=== PATIENT | male | born 1980 | race Caucasian/White ===

== ENCOUNTER 2017-02-21 09:31 | Emergency (ER) | payer OTHER ==
[2017-02-21] MEDS ORDERED: DEXAMETHASONE SOD PHOS INJ 10 MG/1 ML VIAL IM ONE (10:39)
[2017-02-21] MEDS ORDERED: KETOROLAC TROMETHAMINE 60 MG/2 ML SDV IM ONE (10:39)
--- NOTE | 2017-02-21 10:45 | ER Document Report ---
ED Neck/Back Problem - General Chief Complaint: Low Back Pain Stated Complaint: BACK PAIN Time Seen by Provider: 02/21/17 10:04 Notes: 36 yo male presents to ED c/o mid to low back pain x 1 week. pt reports having back pain for years, but this week the pain is worse. pt denies radiculopathy, paresthesias, bowel/bladder dysfunction. No fever, no hx/o cancer, no recent tattoos or injections. Denies IV drug use. pain is aggrevated with prolonged standing and bending. 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 pt reports he dropped his soda bottle this morning and felt sharp pain when he bent over. TRAVEL OUTSIDE OF THE [place] IN LAST 30 DAYS: No - HPI Patient complains to provider of: Pain Where: Work Onset: Chronic - with exacerbations Quality of pain: Sharp, Stabbing Pain Level: 5 Context: Bending Associated symptoms: None, Like prior neck/back pain, Lower back pain. denies: Fever, Incontinence, Motor loss, Numbness/tingling, Radiation to leg, Unable to urinate Exacerbated by: Other - prolonged standing and bending Relieved by: Supine Similar symptoms previously: Yes Recently seen / treated by doctor: No - Related Data Allergies/Adverse Reactions: acetaminophen [From Tylenol] Allergy (Intermediate, Verified 02/21/17 09:40) VOMITING Past Medical History - General Information source: Patient - Social History Smoking Status: Current Every Day Smoker Chew tobacco use (# tins/day): No Frequency of alcohol use: Rare Drug Abuse: None Lives with: Family Family History: Reviewed & Not Pertinent Patient has suicidal ideation: No Patient has homicidal ideation: No - Past Medical History Cardiac Medical History: Reports: Hx Hypertension Pulmonary Medical History: Reports: Hx Sleep Apnea Denies: Hx Asthma Renal/ Medical History: Denies: Hx Peritoneal Dialysis Past Surgical History: Denies: Hx Pacemaker - Immunizations Hx Diphtheria, Pertussis, Tetanus Vaccination: Yes Review of Systems - Review of Systems Constitutional: No symptoms reported EENT: No symptoms reported Cardiovascular: No symptoms reported Respiratory: No symptoms reported Gastrointestinal: No symptoms reported Genitourinary: No symptoms reported Male Genitourinary: No symptoms reported Musculoskeletal: See HPI, Back pain Skin: No symptoms reported Hematologic/Lymphatic: No symptoms reported Neurological/Psychological: No symptoms reported Physical Exam - Vital signs Vitals: Temp Pulse Resp BP Pulse Ox 98.7 F 104 H 18 159/124 H 95 02/21/17 09:40 02/21/17 09:40 02/21/17 09:40 02/21/17 09:40 02/21/17 09:40 Interpretation: Normal - General General appearance: Appears well, Alert - HEENT Head: Normocephalic, Atraumatic Eyes: Normal Pupils: PERRL - Respiratory Respiratory status: No respiratory distress Chest status: Nontender Breath sounds: Normal Chest palpation: Normal - Cardiovascular Rhythm: Regular Heart sounds: Normal auscultation Murmur: No - Abdominal Inspection: Normal Distension: No distension Bowel sounds: Normal Tenderness: Nontender Organomegaly: No organomegaly - Back Back: Tender - mid thoracic to lower lumbar spinal and paraspinal tenderness. neg SLT, neg heel/toe. pt able to walk without difficulty - Extremities General upper extremity: Normal inspection, Nontender, Normal color, Normal ROM , Normal temperature General lower extremity: Normal inspection, Nontender, Normal color, Normal ROM , Normal temperature, Normal weight bearing. No: Michael's sign - Neurological Neuro grossly intact: Yes Cognition: Normal Orientation: AAOx4 Perkins Coma Scale Eye Opening: Spontaneous Mundo Coma Scale Verbal: Oriented Perkins Coma Scale Motor: Obeys Commands Mundo Coma Scale Total: 15 Speech: Normal Motor strength normal: LUE, RUE, LLE, RLE Sensory: Normal - Psychological Associated symptoms: Normal affect, Normal mood - Skin Skin Temperature: Warm Skin Moisture: Dry Skin Color: Normal Course - Re-evaluation Re-evalutation: 02/21/17 11:22 pt presents with chronic low back pain with s/s of an acute exacerbation. pt has no s/s spinal cord compression, cauda equina, infection, aneurysm or other serious etiology. pt is neurologically intact, independently and steadily ambulating without paresthesia or neurologic deficits. Given the extremely low risk of these diagnoses, further diagnostic testing is not indicated in the ED. It was explained to the patient that he should establish with primary care to further evaluate this pain. Home care, follow up with PCM and ED return precautions discussed with pt. pt verbalizes understanding and agrees with plan. short course of pain med and muscle relaxant provided. pt is stable for discharge. 02/21/17 11:26 pt has hx/o HTN but is not on medication at this time. Elevated BP brought to pt's attention. Pt reports he's "always that high". Denies any headache, chest pain, shortness of breath or any other s/s hypertensive crisis. pt encouraged to f/u PCM for further evaluation of elevated blood pressure - Vital Signs Vital signs: Temp Pulse Resp BP Pulse Ox 98.3 F 89 16 168/97 H 93 02/21/17 10:52 02/21/17 10:52 02/21/17 10:52 02/21/17 10:52 02/21/17 10:52 Discharge - Discharge Clinical Impression: Back pain Qualifiers: Back pain location: low back pain Chronicity: acute Back pain laterality: midline Sciatica presence: without sciatica Qualified Code(s): M54.5 - Low back pain Condition: Stable Disposition: HOME, SELF-CARE Instructions: Ice Packs ([facility]), Low Back Pain ([facility]), Muscle Relaxers ([facility]), Oral Narcotic Medication ([facility]), Warm Packs ([facility]) Additional Instructions: please take medications as prescribed for comfort please establish with primary care for further evaluation and treatment of your back pain Prescriptions: Cyclobenzaprine HCl [Flexeril 10 Mg Tablet] 10 mg PO Q6H PRN #20 tablet PRN Reason: Oxycodone HCl [Oxycodone HCl 10 MG Tablet] 10 mg PO Q4H PRN #25 tablet PRN Reason:
[2017-02-21 10:55] VITALS: BP 168/97
== END 2017-02-21 11:00 | disposition home or self-care (01) ==
LOC: ER 09:31
DX: M54.5 Low back pain (principal); F17.200 Nicotine dependence, unspecified, uncomplicated
CPT/HCPCS: 99283; 96372; J1885; J1100

== ENCOUNTER 2017-11-28 14:41 | Emergency (ER) | payer SELFPAY ==
[2017-11-28] MEDS ORDERED: OXYCODONE HCL IR 5 MG TABLET PO ONE (15:14)
--- NOTE | 2017-11-28 15:16 | ER Document Report ---
HPI - HPI Patient complains to provider of: fall Pain Level: 4 Context: pt is a 37 yo male c/o pain to right wrist, right shoulder and mid lower back. pt reports he slipped on wet concrete today and fell. caught himself with outstretched hand, then right arm slipped out from under him and he fell. pt denies radiculopathy,paresthesia, bowel/bladder change. no fever. no previous back injury. 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 Associated Symptoms: None Exacerbated by: Movement Relieved by: Denies - CONSTITUTIONAL Constitutional: DENIES: Fever, Chills - EENT EENT: DENIES: Sore Throat, Ear Pain, Eye problems - NEURO Neurology: DENIES: Headache, Weakness, Vision blurred, Dizzinesss / Vertigo - CARDIOVASCULAR Cardiovascular: DENIES: Chest pain - RESPIRATORY Respiratory: DENIES: Trouble Breathing, Coughing - GASTROINTESTINAL Gastrointestinal: DENIES: Abdominal Pain, Black / Bloody Stools - URINARY Urinary: DENIES: Dysuria, Urgency, Frequency - MUSCULOSKELETAL Musculoskeletal: REPORTS: Extremity pain Past Medical History - General Information source: Patient - Social History Smoking Status: Current Every Day Smoker Chew tobacco use (# tins/day): No Frequency of alcohol use: None Drug Abuse: None Lives with: Family Family History: Reviewed & Not Pertinent Patient has suicidal ideation: No Patient has homicidal ideation: No - Past Medical History Cardiac Medical History: Reports: Hx Hypertension - no meds Pulmonary Medical History: Reports: Hx Sleep Apnea Denies: Hx Asthma Endocrine Medical History: Reports: Hx Diabetes Mellitus Type 2 - no meds Renal/ Medical History: Denies: Hx Peritoneal Dialysis Past Surgical History: Denies: Hx Pacemaker - Immunizations Hx Diphtheria, Pertussis, Tetanus Vaccination: Yes Vertical Provider Document - CONSTITUTIONAL Agree With Documented VS: Yes Exam Limitations: No Limitations General Appearance: Obese - INFECTION CONTROL TRAVEL OUTSIDE OF THE [place] IN LAST 30 DAYS: No - HEENT HEENT: Atraumatic, Normal ENT Exam, PERRLA - NECK Neck: Normal Inspection, Supple - RESPIRATORY Respiratory: Breath Sounds Normal, No Respiratory Distress - CARDIOVASCULAR Cardiovascular: Regular Rate, Regular Rhythm - BACK Back: Abnormal Inspection - Positive lumbar spinal and paraspinal tenderness. Negative straight leg test no foot drop - MUSCULOSKELETAL/EXTREMETIES Musculoskeletal/Extremeties: Tender - Positive tenderness to anterior and posterior right AC. Positive painful arc. Positive tenderness right distal radius and mid wrist. No deformity no ecchymosis . - NEURO Level of Consciousness: Awake, Alert, Appropriate Motor/Sensory: No Motor Deficit - DERM Integumentary: Warm, Dry Course - Re-evaluation Re-evalutation: 11/28/17 15:59 X-rays are negative for acute fracture. Procedures - Immobilization Right wrist Pre-Proc Neuro Vasc Exam: Normal Immobilizer type: Cock-up Performed by: PCT Post-Proc Neuro Vasc Exam: Normal Alignment checked and good: Yes Discharge - Discharge Clinical Impression: Right wrist sprain Qualifiers: Encounter type: initial encounter Qualified Code(s): S63.501A - Unspecified sprain of right wrist, initial encounter Sprain of right shoulder Qualifiers: Encounter type: initial encounter Shoulder sprain type: unspecified sprain Qualified Code(s): S43.401A - Unspecified sprain of right shoulder joint, initial encounter Low back strain Qualifiers: Encounter type: initial encounter Qualified Code(s): S39.012A - Strain of muscle, fascia and tendon of lower back, initial encounter Condition: Stable Instructions: Ice Packs ([facility]), Low Back Pain ([facility]), Muscle Strain ([facility]), Warm Packs ([facility]), Muscle Relaxers ([facility]), Temporary Splint ([facility]), Ice & Elevation ([facility] ) Additional Instructions: Your x-rays are negative for acute fracture Alternate ice and heat to sore areas Wear wrist splint for comfort and protection Anti-inflammatories and muscle relaxants were prescribed Follow-up with your primary care if pain persists more than 10 days Prescriptions: Ibuprofen [Motrin 800 Mg Tablet] 800 mg PO Q6H #20 tablet Methocarbamol [Robaxin 500 Mg Tablet] 1,000 mg PO Q6 #30 tablet Forms: Return to Work
--- NOTE | 2017-11-28 16:19 | RADIOLOGY REPORT (SQ) ---
EXAM DESCRIPTION: WRIST RIGHT 3 VIEWS COMPLETED DATE/TIME: 11/28/2017 4:10 pm REASON FOR STUDY: fell, pain to wrist, sholder and low back COMPARISON: None. NUMBER OF VIEWS: Three views. TECHNIQUE: AP, lateral, and oblique radiographic images acquired of the right wrist. LIMITATIONS: None. FINDINGS: MINERALIZATION: Normal. BONES: No acute fracture or dislocation. No worrisome bone lesions. Normal alignment. SOFT TISSUES: No soft tissue swelling. No foreign body. OTHER: No other significant finding. IMPRESSION: NEGATIVE STUDY OF THE RIGHT WRIST. NO RADIOGRAPHIC EVIDENCE OF ACUTE INJURY. TECHNICAL DOCUMENTATION: JOB ID: [id number] [employer]- All Rights Reserved Reading location - IP/workstation name: [email or web address]
--- NOTE | 2017-11-28 16:19 | RADIOLOGY REPORT (SQ) ---
EXAM DESCRIPTION: SHOULDER RIGHT 2 OR MORE VIEWS COMPLETED DATE/TIME: 11/28/2017 4:10 pm REASON FOR STUDY: fell, pain to wrist, shoulder and low back COMPARISON: None. NUMBER OF VIEWS: Three views. TECHNIQUE: Internal rotation, external rotation, and Y view images acquired of the right shoulder. LIMITATIONS: None. FINDINGS: MINERALIZATION: Normal. BONES: No acute fracture or dislocation. No worrisome bone lesions. JOINTS: No dislocation. VISUALIZED LUNGS AND RIBS: No pneumothorax. No rib fracture. SOFT TISSUES: No radiopaque foreign body. OTHER: No other significant finding. IMPRESSION: NEGATIVE STUDY OF THE RIGHT SHOULDER. NO RADIOGRAPHIC EVIDENCE OF ACUTE INJURY. TECHNICAL DOCUMENTATION: JOB ID: [id number] [employer]- All Rights Reserved Reading location - IP/workstation name: [email or web address]
--- NOTE | 2017-11-28 16:21 | RADIOLOGY REPORT (SQ) ---
EXAM DESCRIPTION: L SPINE WHOLE COMPLETED DATE/TIME: 11/28/2017 4:10 pm REASON FOR STUDY: fell, pain to wrist, sholder and low back COMPARISON: 11/12/2015 NUMBER OF VIEWS: Five views including obliques. TECHNIQUE: AP, lateral, oblique, and sacral radiographic images acquired of the lumbar spine. LIMITATIONS: None. FINDINGS: MINERALIZATION: Normal. SEGMENTATION: Normal. No transitional anatomy. ALIGNMENT: Normal. VERTEBRAE: Maintained height. No fracture or worrisome bone lesion. DISCS: Preserved height. No significant osteophytes or end plate irregularity. POSTERIOR ELEMENTS: Pedicles and facets are intact. No pars defect or posterior arch defects. HARDWARE: None in the spine. PARASPINAL SOFT TISSUES: Normal. PELVIS: Intact as visualized. No fractures or worrisome bone lesions. SI joints intact. OTHER: No other significant finding. IMPRESSION: NORMAL 5 VIEW LUMBAR SPINE. TECHNICAL DOCUMENTATION: JOB ID: [id number] [employer]- All Rights Reserved Reading location - IP/workstation name: [email or web address]
== END 2017-11-28 16:16 | disposition home or self-care (01) ==
LOC: ER 14:41
DX: S63.501A Unspecified sprain of right wrist, initial encounter (principal); S43.401A Unspecified sprain of right shoulder joint, initial encounter; S39.012A Strain of muscle, fascia and tendon of lower back, initial encounter; M25.531 Pain in right wrist; M25.511 Pain in right shoulder; W01.0XXA Fall on same level from slipping, tripping and stumbling without subsequent striking against object, initial encounter; I10 Essential (primary) hypertension; E11.9 Type 2 diabetes mellitus without complications; F17.200 Nicotine dependence, unspecified, uncomplicated
CPT/HCPCS: 99283; 72110; 73030; 73110; L3908

== ENCOUNTER 2017-12-25 10:47 | Emergency (ER) | payer SELFPAY ==
[2017-12-25] MEDS ORDERED: ONDANSETRON 4 MG TAB.RAPDIS PO ONE (11:14)
[2017-12-25] MEDS ORDERED: LIDOCAINE 5% (700 MG) TRANSDERMAL ADH..PATCH TP ONE (11:14)
--- NOTE | 2017-12-25 11:15 | ER Document Report ---
ED Medical Screen (RME) - General Chief Complaint: Abdominal Pain Stated Complaint: ABDOMINAL/BACK PAIN Time Seen by Provider: 12/25/17 11:07 TRAVEL OUTSIDE OF THE [place] IN LAST 30 DAYS: No - HPI Notes: 12/25/17 11:14 Exacerbation of chronic back pain with nausea vomiting diarrhea states blood in stool this morning. - Related Data Allergies/Adverse Reactions: acetaminophen [From Tylenol] Allergy (Intermediate, Verified 11/28/17 14:42) VOMITING Past Medical History - Social History Chew tobacco use (# tins/day): No Frequency of alcohol use: None Drug Abuse: None - Past Medical History Cardiac Medical History: Reports: Hx Hypertension - no meds Pulmonary Medical History: Reports: Hx Sleep Apnea Denies: Hx Asthma Endocrine Medical History: Reports: Hx Diabetes Mellitus Type 2 - no meds Renal/ Medical History: Denies: Hx Peritoneal Dialysis Past Surgical History: Denies: Hx Pacemaker - Immunizations Hx Diphtheria, Pertussis, Tetanus Vaccination: Yes Review of Systems - Review of Systems Gastrointestinal: Abdominal pain, Diarrhea, Nausea, Vomiting Musculoskeletal: Back pain -: Yes All other systems reviewed and negative Physical Exam - Vital signs Vitals: Temp Pulse Resp BP Pulse Ox 98.2 F 92 20 157/93 H 95 12/25/17 10:51 12/25/17 10:51 12/25/17 10:51 12/25/17 10:51 12/25/17 10:51 Course - Vital Signs Vital signs: Temp Pulse Resp BP Pulse Ox 98.2 F 92 20 157/93 H 95 12/25/17 10:51 12/25/17 10:51 12/25/17 10:51 12/25/17 10:51 12/25/17 10:51
[2017-12-25 11:55] LABS: ABSOLUTE BASOPHILS # (AUTO) 0.1 10^3/uL (0.0-0.2); ABSOLUTE EOSINOPHILS # (AUTO) 0.1 10^3/uL (0.0-0.6); ABSOLUTE LYMPHOCYTES (AUTO) 2.3 10^3/uL (0.5-4.7); ABSOLUTE MONOCYTES (AUTO) 0.5 10^3/uL (0.1-1.4); ABSOLUTE NEUT (AUTO) 7.5 10^3/uL (1.7-8.2); HEMOGLOBIN 15.6 g/dL (13.5-17.0); LYMPHOCYTES % (AUTO) 21.7 % (13-45); MEAN CORPUSCULAR HEMOGLOBIN 32.3 pg (27.0-33.4); MEAN CORPUSCULAR HGB CONC 34.8 g/dL (32.0-36.0); MEAN CORPUSCULAR VOLUME 93 fl (80-97); MONOCYTES % (AUTO) 5.1 % (3-13); PLATELET COUNT 208 10^3/uL (150-450); RED BLOOD COUNT 4.84 10^6/uL (4.35-5.55); RED CELL DISTRIBUTION WIDTH 14.2 % (11.5-14.0); SEGMENTED NEUTROPHILS % (AUTO) 71.2 % (42-78); TOTAL CELLS COUNTED % (AUTO) 100 %; WHITE BLOOD COUNT 10.5 10^3/uL (4.0-10.5)
[2017-12-25 11:59] LABS: APPEARANCE,URINE CLEAR; BILIRUBIN,URINE NEGATIVE (NEGATIVE); COLOR,URINE YELLOW; GLUCOSE, URINE >=500 mg/dL (NEGATIVE); KETONES,URINE NEGATIVE (NEGATIVE); LEUKOCYTE ESTERASE,URINE NEGATIVE (NEGATIVE); NITRITE,URINE NEGATIVE (NEGATIVE); PROTEIN,URINE 100 mg/dL (NEGATIVE); URINE SPECIFIC GRAVITY 1.035
[2017-12-25 12:12] LABS: ALANINE AMINOTRANSFERASE 49 U/L (21-72); ALBUMIN 4.4 g/dL (3.5-5.0); ALKALINE PHOSPHATASE 68 U/L (38-126); ANION GAP 14 (5-19); ASPARTATE AMINO TRANSFERASE 29 U/L (17-59); BILIRUBIN,DIRECT 0.3 mg/dL (0.0-0.4); BILIRUBIN,TOTAL 0.9 mg/dL (0.2-1.3); BLOOD UREA NITROGEN 14 mg/dL (7-20); CALCIUM 9.6 mg/dL (8.4-10.2); CARBON DIOXIDE 29 mmol/L (22-30); CHLORIDE 97 mmol/L (98-107); GLUCOSE 299 mg/dL (75-110); LIPASE 112.8 U/L (23-300); POTASSIUM 4.6 mmol/L (3.6-5.0); SODIUM 139.8 mmol/L (137-145); TOTAL PROTEIN 7.9 g/dL (6.3-8.2)
[2017-12-25] MEDS ORDERED: DEXAMETHASONE SOD PHOS INJ 10 MG/1 ML VIAL IM ONE (14:29)
[2017-12-25] MEDS ORDERED: KETOROLAC TROMETHAMINE 60 MG/2 ML SDV IM ONE (14:29)
--- NOTE | 2017-12-25 14:36 | ER Document Report ---
ED GI/ - General Chief Complaint: Abdominal Pain Stated Complaint: ABDOMINAL/BACK PAIN Time Seen by Provider: 12/25/17 11:07 Mode of Arrival: Ambulatory Information source: Patient Notes: ED for complaint of lower back pain and lower abdominal pain since yesterday. He states when he went to the bathroom this morning and wiped he found some blood on the tissues. I saw him in the emergency room he states he is no longer having any pain in his abdomen only pain in his lower back. He states he has a long history of low back pain. He states he does not have a primary doctor and does not go to her primary doctor in years. He states he has been told in the emergency room that he has high blood pressure and diabetes type 2 but is not followed up with either one. Patient is alert and oriented respirations regular and unlabored able to move freely in the bed. TRAVEL OUTSIDE OF THE [place] IN LAST 30 DAYS: No - HPI Patient complains to provider of: Abdominal pain, Other - Low back pain and blood on his toilet paper Onset: Yesterday Timing/Duration: Persistent Quality of pain: Sharp Severity at maximum: Severe Severity in ED: Moderate Pain Level: 2 Location: Other - States he was having lower abdominal pain but he does not have any pain in his lower abdomen now Associated symptoms: Other - Blood when he wipes and back pain Exacerbated by: Movement - For his back pain states he is no longer having abdominal pain Relieved by: Sitting, Standing Similar symptoms previously: Yes Recently seen / treated by doctor: No - Related Data Allergies/Adverse Reactions: acetaminophen [From Tylenol] Allergy (Intermediate, Verified 11/28/17 14:42) VOMITING Past Medical History - General Information source: Patient - Social History Smoking Status: Current Every Day Smoker Cigarette use (# per day): Yes - ppd Chew tobacco use (# tins/day): No Smoking Education Provided: Yes - 4min Frequency of alcohol use: None Drug Abuse: None Lives with: Friend Family History: Reviewed & Not Pertinent Patient has suicidal ideation: No Patient has homicidal ideation: No - Past Medical History Cardiac Medical History: Reports: Hx Hypertension - no meds Pulmonary Medical History: Reports: Hx Sleep Apnea EENT Medical History: Reports: None Neurological Medical History: Reports: None Endocrine Medical History: Reports: Hx Diabetes Mellitus Type 2 - no meds Renal/ Medical History: Reports: None Malignancy Medical History: Reports None GI Medical History: Reports: None Musculoskeletal Medical History: Reports None Skin Medical History: Reports None Psychiatric Medical History: Reports: None Traumatic Medical History: Reports: None Infectious Medical History: Reports: None Surgical Hx: Negative Past Surgical History: Reports: None - Immunizations Hx Diphtheria, Pertussis, Tetanus Vaccination: Yes Review of Systems - Review of Systems Constitutional: No symptoms reported EENT: No symptoms reported Cardiovascular: No symptoms reported Respiratory: No symptoms reported Gastrointestinal: Abdominal pain, Other - blood on paper Genitourinary: No symptoms reported Male Genitourinary: No symptoms reported Musculoskeletal: Back pain Skin: No symptoms reported Hematologic/Lymphatic: No symptoms reported Neurological/Psychological: No symptoms reported -: Yes All other systems reviewed and negative Physical Exam - Vital signs Vitals: Temp Pulse Resp BP Pulse Ox 98.2 F 92 20 157/93 H 95 12/25/17 10:51 12/25/17 10:51 12/25/17 10:51 12/25/17 10:51 12/25/17 10:51 Interpretation: Normal - General General appearance: Appears well, Alert - HEENT Head: Normocephalic, Atraumatic Eyes: Normal Pupils: PERRL - Respiratory Respiratory status: No respiratory distress Chest status: Nontender Breath sounds: Normal Chest palpation: Normal - Cardiovascular Rhythm: Regular Heart sounds: Normal auscultation Murmur: No - Abdominal Inspection: Normal Distension: No distension Bowel sounds: Normal Tenderness: Nontender Organomegaly: No organomegaly - Back Back: Normal, Tender - Across the lower back all the way across, Vertebra tenderness. No: Deformity/step-off, CVA tenderness, Scars, Scoliosis, Wounds - Extremities General upper extremity: Normal inspection, Nontender, Normal color, Normal ROM , Normal temperature General lower extremity: Normal inspection, Nontender, Normal color, Normal ROM , Normal temperature, Normal weight bearing. No: Michael's sign - Neurological Neuro grossly intact: Yes Cognition: Normal Orientation: AAOx4 [place] Coma Scale Eye Opening: Spontaneous [place] Coma Scale Verbal: Oriented [place] Coma Scale Motor: Obeys Commands [place] Coma Scale Total: 15 Speech: Normal Motor strength normal: LUE, RUE, LLE, RLE Sensory: Normal - Psychological Associated symptoms: Normal affect, Normal mood - Skin Skin Temperature: Warm Skin Moisture: Dry Skin Color: Normal Course - Re-evaluation Re-evalutation: 12/26/17 01:33 Patient states he did not have any abdominal pain when I examined him. He had no abdominal tenderness when I examined him. He was treated with Toradol Decadron given instructions concerning these medications at home. Patient was instructed on exercises for his low back pain. He was also instructed to follow -up with his primary doctor. Patient was able to verbalize understanding and agreement with treatment plan. Patient has a history of diabetes and high blood pressure. He states she has not been able to go to a doctor because he does not have insurance. He was given a dose of lisinopril and started on metformin and instructed that he needs to follow-up with the primary doctor. His blood sugar was 299. - Vital Signs Vital signs: Temp Pulse Resp BP Pulse Ox 98 F 84 16 137/89 H 96 12/25/17 15:37 12/25/17 15:37 12/25/17 15:37 12/25/17 15:37 12/25/17 15:37 - Laboratory Result Diagrams: 12/25/17 11:37 12/25/17 11:37 Laboratory results interpreted by me: 12/25/17 12/25/17 12/25/17 11:37 11:37 11:37 RDW 14.2 H Chloride 97 L Glucose 299 H Urine Protein 100 H Urine Glucose (UA) >=500 H Urine Urobilinogen 2.0 H Discharge - Discharge Clinical Impression: Low back pain Qualifiers: Chronicity: chronic Back pain laterality: bilateral Sciatica presence: without sciatica Qualified Code(s): M54.5 - Low back pain Abdominal pain Qualifiers: Abdominal location: left upper quadrant Qualified Code(s): R10.12 - Left upper quadrant pain Condition: Stable Disposition: HOME, SELF-CARE Instructions: Abdominal Pain ([facility]), Angiotensin Converting Enzyme Inhibitor Medication ([facility]), Diabetes ([facility]), Family Physicians / Practices, Glucophage ([facility] ), High Blood Pressure ([facility]) Additional Instructions: LOW BACK PAIN: Three out of every four people will have an episode of disabling back pain during their lifetime. Most commonly the pain is due to straining of the muscles and ligaments in the low back. Usual treatment includes: (1) Rest on a firm surface. Avoid lying on your stomach. (2) Ice pack the painful area. After a few days, gentle heat may be used intermittently to relax the area, or ice packs can be continued. (3) Medication may be needed -- muscle relaxers and antiinflammatory medicines are commonly used. (4) As the back improves, exercises are prescribed to strengthen the back and abdominal muscles. Your doctor will advise you on the proper care for your back at each stage in your recovery. You may be better in a few days -- or healing may take several weeks. If new symptoms of a "herniated disc" (radiation of pain, numbness, or tingling down the back of the leg or weakness in the leg) occur, you should be re-examined. Further testing may be necessary. Stretching Exercises for the Back The physician has recommended that you begin stretching exercises for your back. These are often used even while the back is painful. However, you should notify the physician if the activities seem to increase your pain. PELVIC TILT: Lie flat on your back with knees bent. Tighten your stomach and buttock muscles so it flattens your lower back against the floor. Hold 10 seconds. Repeat 10 times, twice daily. KNEE RAISE: Lying on the back with knees bent, raise one knee to your chest, then the other. Hold both knees against the chest 10 seconds, then lower one knee at a time. Repeat 10 times, twice daily. PARTIAL TRUNK RAISE: Lie face down, arms at your sides. Keeping your waist on the floor, use your arms raise your chest up. Support yourself on your elbows for 30 seconds. Repeat twice daily, increasing the time to two minutes as you recover. STEROID MEDICATION: You have been given an injection of medicine of the cortisone/steroid class. This medication is used to control inflammation or allergy. It is often continued as a pill for a short period of time, until the acute process subsides. There are usually no side effects from short-term use of cortisone-like medications. Some persons feel an increased sense of well-being and are not sleepy at bedtime. Long-term use of cortisone medications is best avoided, unless required for a severe condition. If your condition does not remit, or relapses after the course of corticosteroid medication, you should consult your physician. Toradol Injection You have been given an injection of ketorolac tromethamine (Toradol). This is an excellent, safe drug for pain control. It also has potent antiinflammatory action. You should have significant pain relief within about one hour. Toradol is not addicting and is non-sedating. It does not interfere with driving or work. Call or return if you develop itching, hives, shortness of breath, or rash. MUSCLE RELAXERS: Muscle relaxing medications are usually prescribed for acute muscle spasm or injury to the neck and back. They are often combined with antiinflammatory pain medication for increased relief. You may stop the muscle relaxer when the pain and stiffness have improved. Start the medication again if spasms recur. Muscle relaxers may cause drowsiness, especially with the first dose. Do not operate machinery or drive while under the effects of the medication. Most muscle relaxers last up to 24 hours. Do not combine the medication with alcohol. ICE PACKS: Apply ice packs frequently against the painful area. Many different schedules are recommended, such as "20 minutes on, 20 minutes off" or "one hour ice, two hours rest." If you need to work, you may need to go longer between ice treatments. You should plan to have the area ice packed AT LEAST one fourth of the time. The ice should be applied over the wrap, tape, or splint, or over a layer of cloth -- not directly against the skin. Some ice bags have a built-in cloth and can be put directly on the skin. WARM PACKS: After approximately two days, apply gentle heat (such as a heating pad or hot water bottle) for about 20 to 30 minutes about every two hours -- at least four times daily. Warmth and elevation will help you make a more rapid recovery , and will ease the pain considerably. Do not use HOT heat, and never apply heat for longer than 30 minutes. The continuous heat can invisibly damage skin and muscles -- even when no burn is seen on the surface. Damaged muscles can make you MORE sore. FOLLOW-UP CARE: If you have been referred to a physician for follow-up care, call the physician s office for an appointment as you were instructed or within the next two days. If you experience worsening or a significant change in your symptoms, notify the physician immediately or return to the Emergency Department at any time for re-evaluation. Prescriptions: Lisinopril 10 mg PO DAILY #30 tablet Metformin HCl 500 mg PO ASDIR PRN #60 tablet PRN Reason: Methocarbamol [Robaxin 500 mg Tablet] 1,000 mg PO BID PRN #30 tablet PRN Reason: Forms: Elevated Blood Pressure, Smoking Cessation Education, Return to Work
[2017-12-25 15:38] VITALS: BP 137/89
== END 2017-12-25 15:46 | disposition home or self-care (01) ==
LOC: ER 10:47
DX: M54.5 Low back pain (principal); R10.12 Left upper quadrant pain; R10.30 Lower abdominal pain, unspecified; I10 Essential (primary) hypertension; E11.9 Type 2 diabetes mellitus without complications; F17.210 Nicotine dependence, cigarettes, uncomplicated
CPT/HCPCS: 99406; 99284; 96372; 36415; 83690; 85025; 82272; 80053; 81001; J1885; S0119; J1100

== ENCOUNTER 2018-01-11 06:49 | Emergency (ER) | payer SELFPAY ==
[2018-01-11] MEDS ORDERED: NORMAL SALINE 1000 ML 1,000 ML IV ONE (08:10)
[2018-01-11] MEDS ORDERED: KETOROLAC TROMETHAMINE INJ/PF 30 MG/1 ML SDV IV ONE (08:10)
[2018-01-11] MEDS ORDERED: DIPHENHYDRAMINE HCL 50 MG/ML VIAL IV ONE (08:10)
[2018-01-11] MEDS ORDERED: PROCHLORPERAZINE EDISYLATE INJ 10 MG/2 ML VIAL IV ONE (08:10)
--- NOTE | 2018-01-11 09:16 | ER Document Report ---
ED Headache - General Chief Complaint: Headache Stated Complaint: HEAD PAIN Time Seen by Provider: 01/11/18 07:39 Mode of Arrival: Ambulatory Information source: Patient Notes: Patient presents complaining of headache pain to bilateral temples and goes back to the bilateral posterior aspect of his head and neck area. Patient without any fever. Patient denies any recent illness. Patient without any history of head injury. Patient does report nausea and vomiting 1 episode today. Patient does have a history of headaches in the past. Patient states he has had headache for the past week and is here because he needs a note for his employer. TRAVEL OUTSIDE OF THE [place] IN LAST 30 DAYS: No - HPI Patient complains to provider of: Headache Patient reports: Occasional migraines Onset: Last week Onset was: Gradual Timing: Still present Quality of pain: Achy, Pressure Pain Level: 5 Context: denies: Head injury Associated symptoms: Nausea/vomiting, Photophobia. denies: Chills, Confusion, Dizzy, Fever, Neck pain, Speech problems, Stiff neck Exacerbated by: Light Similar symptoms previously: Yes Recently seen / treated by doctor: No - Related Data Allergies/Adverse Reactions: acetaminophen [From Tylenol] Allergy (Intermediate, Verified 11/28/17 14:42) VOMITING Past Medical History - General Information source: Patient - Social History Smoking Status: Current Every Day Smoker Chew tobacco use (# tins/day): No Smoking Education Provided: Yes Frequency of alcohol use: None Drug Abuse: None Occupation: [employer] Family History: Reviewed & Not Pertinent Patient has suicidal ideation: No Patient has homicidal ideation: No - Past Medical History Cardiac Medical History: Reports: Hx Hypertension - no meds Pulmonary Medical History: Reports: Hx Sleep Apnea Denies: Hx Asthma Endocrine Medical History: Reports: Hx Diabetes Mellitus Type 2 - no meds Renal/ Medical History: Denies: Hx Peritoneal Dialysis Surgical Hx: Negative Past Surgical History: Denies: Hx Pacemaker - Immunizations Hx Diphtheria, Pertussis, Tetanus Vaccination: Yes Review of Systems - Review of Systems Constitutional: No symptoms reported. denies: Fever, Recent illness EENT: No symptoms reported Cardiovascular: No symptoms reported. denies: Chest pain Respiratory: No symptoms reported Gastrointestinal: Nausea, Vomiting. denies: Abdominal pain, Diarrhea Genitourinary: No symptoms reported Male Genitourinary: No symptoms reported Musculoskeletal: Neck pain - Lateral aspects of the neck. denies: Back pain Skin: No symptoms reported. denies: Rash Hematologic/Lymphatic: No symptoms reported Neurological/Psychological: Headaches. denies: Confusion, Weakness, Lost consciousness Physical Exam - Vital signs Vitals: Temp Pulse Resp BP Pulse Ox 97.9 F 94 22 H 166/95 H 95 01/11/18 06:53 01/11/18 06:53 01/11/18 06:53 01/11/18 06:53 01/11/18 06:53 - General General appearance: Appears well, Alert In distress: None - HEENT Head: Normocephalic, Atraumatic Eyes: Normal Conjunctiva: Normal Extraocular movements intact: Yes Eyelashes: Normal Pupils: PERRL Ears: Normal External canal: Normal Nasal: Normal Mouth/Lips: Normal Mucous membranes: Normal Pharynx: Normal Neck: Supple. No: Brudzinski, Lymphadenopathy, Meningismus - Respiratory Respiratory status: No respiratory distress Chest status: Nontender Breath sounds: Normal. No: Rales, Rhonchi, Stridor, Wheezing Chest palpation: Normal - Cardiovascular Rhythm: Regular Heart sounds: S1 appreciated, S2 appreciated Murmur: No - Abdominal Inspection: Obese Distension: No distension Bowel sounds: Normal Tenderness: Nontender Organomegaly: No organomegaly - Back Back: Tender - Bilateral trapezius muscle tenderness. No: CVA tenderness, Vertebra tenderness - Extremities General upper extremity: Normal inspection, Normal ROM General lower extremity: Normal inspection, Normal ROM - Neurological Neuro grossly intact: Yes Cognition: Normal [place] Coma Scale Eye Opening: Spontaneous [place] Coma Scale Verbal: Oriented [place] Coma Scale Motor: Obeys Commands [place] Coma Scale Total: 15 Speech: Normal Cranial nerves: Normal. No: Facial palsy, Tongue deviation Cerebellar coordination: Normal Motor strength normal: LUE, RUE, LLE, RLE - Psychological Associated symptoms: Normal affect, Normal mood - Skin Skin Temperature: Warm Skin Moisture: Dry Skin Color: Normal Course - Re-evaluation Re-evalutation: 01/11/18 09:15 Patient reports headache pain is down to 1/5 scale. Patient states he feels he can manage his pain symptoms at home. Patient afebrile without any meningismus. The patient presents with headache without signs of [employer] bleed, stroke, infection, or other serious etiology. The patient is neurologically intact. Given the extremely low risk of these diagnoses further testing and evaluation for these possibilities does not appear to be indicated at this time. The patient has been instructed to return if the symptoms worsen or change in any way. - Vital Signs Vital signs: Temp Pulse Resp BP Pulse Ox 98.0 F 86 16 151/95 H 96 01/11/18 09:24 01/11/18 09:24 01/11/18 09:24 01/11/18 09:24 01/11/18 09:24 Discharge - Discharge Clinical Impression: Headache Qualifiers: Headache type: unspecified Headache chronicity pattern: acute headache Intractability: not intractable Qualified Code(s): R51 - Headache Condition: Stable Disposition: HOME, SELF-CARE Instructions: Intravenous Compazine for Headaches ([facility]), Use of Diphenhydramine , Headache ([facility]), Toradol Injection ([facility]) Additional Instructions: Return immediately for any new or worsening symptoms Followup with your primary care provider, call tomorrow to make a followup appointment Prescriptions: Cyclobenzaprine HCl [Flexeril 10 Mg Tablet] 10 mg PO TID #15 tablet Naproxen [Naprosyn 250 Nmg Tablet] 1 tab PO BID #14 tablet Forms: Smoking Cessation Education, Return to Work Referrals: [facility] [Provider Group] - Follow up as needed
[2018-01-11 09:28] VITALS: BP 151/95
== END 2018-01-11 09:28 | disposition home or self-care (01) ==
LOC: ER 06:49
DX: R51 Headache (principal); R11.2 Nausea with vomiting, unspecified; M54.2 Cervicalgia; H53.149 Visual discomfort, unspecified; F17.200 Nicotine dependence, unspecified, uncomplicated; I10 Essential (primary) hypertension; E11.9 Type 2 diabetes mellitus without complications
CPT/HCPCS: 99283; 96361; 96374; 96375; J1200; J1885; J0780; J7030

== ENCOUNTER 2018-09-18 10:58 | Emergency (ER) | payer OTHER ==
[2018-09-18 11:21] VITALS: BP 145/95
[2018-09-18] MEDS ORDERED: LIDOCAINE 5% (700 MG) TRANSDERMAL ADH..PATCH TP ONE (11:39)
[2018-09-18] MEDS ORDERED: NAPROXEN 250 MG TABLET PO ONE (11:39)
--- NOTE | 2018-09-18 11:45 | ER Document Report ---
ED Neck/Back Problem - General Chief Complaint: Back Pain Stated Complaint: BACK PAIN/DIZZINESS Time Seen by Provider: 09/18/18 11:22 Mode of Arrival: Ambulatory Information source: Patient Notes: 37-year-old male presented to ED for complaint of back pain 2 days ago. He states he was at work he bent over and his pot pop but it made him lightheaded and dizzy. He states he stumbled a little bit in the last time he had to go home because it was a liability on the job. He states his boss told him that he could not come back to leave he went to the hospital and got a note saying he can come back to work. He states he is not having any new pain is not dizzy he is fine now he just has his normal chronic pain. States he does not take anything for his pain. But he states that he needs a note to go back to work. TRAVEL OUTSIDE OF THE [place] IN LAST 30 DAYS: Yes - HPI Patient complains to provider of: Pain, Upper back, Lower back Onset: Other - 2 days Where: Work Onset: Chronic Timing: Better Quality of pain: Achy Recent injury: No Associated symptoms: Like prior neck/back pain, Radiation to leg, Lower back pain, Upper back pain. denies: Constipation, Fever, Incontinence, Motor loss, Numbness/tingling, Radiation to arm - Is Peter, Radiation to chest, Sensory loss, Sweaty, Unable to urinate, Other Exacerbated by: Movement of trunk Relieved by: Nothing - PAR is in name you done me Similar symptoms previously: Yes Recently seen / treated by doctor: No - Related Data Allergies/Adverse Reactions: acetaminophen [From Tylenol] Allergy (Intermediate, Verified 09/18/18 11:06) VOMITING Past Medical History - General Information source: Patient - Social History Smoking Status: Current Every Day Smoker Cigarette use (# per day): Yes - Pack per day Smoking Education Provided: Yes - 4 minutes Frequency of alcohol use: None Drug Abuse: None 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 Lives with: Other - Roommate Family History: Reviewed & Not Pertinent Patient has suicidal ideation: No Patient has homicidal ideation: No - Past Medical History Cardiac Medical History: Reports: Hx Hypertension - no meds Pulmonary Medical History: Reports: Hx Sleep Apnea EENT Medical History: Reports: None Neurological Medical History: Reports: None Endocrine Medical History: Reports: Hx Diabetes Mellitus Type 2 - no meds Renal/ Medical History: Reports: None Malignancy Medical History: Reports None GI Medical History: Reports: None Musculoskeletal Medical History: Reports Hx Arthritis, Reports Hx Musculoskeletal Deformity Skin Medical History: Reports None Psychiatric Medical History: Reports: None Traumatic Medical History: Reports: None Infectious Medical History: Reports: None Surgical Hx: Negative Past Surgical History: Reports: None - This is a - Immunizations Immunizations up to date: Yes Hx Diphtheria, Pertussis, Tetanus Vaccination: Yes Review of Systems - Review of Systems Constitutional: No symptoms reported EENT: No symptoms reported Cardiovascular: No symptoms reported Respiratory: No symptoms reported Gastrointestinal: No symptoms reported Genitourinary: No symptoms reported Male Genitourinary: No symptoms reported Musculoskeletal: Back pain - Chronic pain, no saddle anesthesia, no loss control of bowel bladder no loss of control or sensation to the lower extremities, Muscle pain Skin: No symptoms reported Hematologic/Lymphatic: No symptoms reported Neurological/Psychological: No symptoms reported -: Yes All other systems reviewed and negative Physical Exam - Vital signs Vitals: Temp Pulse Resp BP Pulse Ox 98.6 F 101 H 20 145/95 H 95 09/18/18 11:19 09/18/18 11:19 09/18/18 11:19 09/18/18 11:19 09/18/18 11:19 Interpretation: Normal - General General appearance: Appears well, Alert - HEENT Head: Normocephalic, Atraumatic Eyes: Normal Pupils: PERRL - Respiratory Respiratory status: No respiratory distress Chest status: Nontender Breath sounds: Normal Chest palpation: Normal - Cardiovascular Rhythm: Regular Heart sounds: Normal auscultation Murmur: No - Abdominal Inspection: Normal Distension: No distension Bowel sounds: Normal Tenderness: Nontender Organomegaly: No organomegaly - Back Back: Normal, Tender, Vertebra tenderness. No: Deformity/step-off, CVA tenderness, Scars, Scoliosis, Wounds - Extremities General upper extremity: Normal inspection, Nontender, Normal color, Normal ROM, Normal temperature General lower extremity: Normal inspection, Nontender, Normal color, Normal ROM, Normal temperature, Normal weight bearing. 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 Babinski reflex: Normal (flexor plantar) Sensory: Normal Biceps - Reflex grade: 2 = Normal Triceps - Reflex grade: 2 = Normal Brachioradialis - Reflex grade: 2 = Normal - Psychological Associated symptoms: Normal affect, Normal mood - Skin Skin Temperature: Warm Skin Moisture: Dry Skin Color: Normal Course - Re-evaluation Re-evalutation: 09/18/18 11:45 After performing a Medical Screening Examination, I estimate there is LOW risk for EXPANDING OR RUPTURED ABDOMINAL AORTIC ANEURYSM, CAUDA EQUINA SYNDROME, EPIDURAL MASS LESION, or HERNIATED DISK CAUSING SEVERE SPINAL STENOSIS, thus I consider the discharge disposition reasonable. I have reevaluated this patient multiple times and no significant life threatening changes are noted. The patient and I have discussed the diagnosis and risks, and we agree with discharging home and close follow-up. We also discussed returning to the Emergency Department immediately if new or worsening symptoms occur with the understanding that symptoms and presentations can change. We have discussed the symptoms which are most concerning (e.g., saddle anesthesia, urinary or bowel incontinence or retention, changing or worsening pain) that necessitate immediate return. - Vital Signs Vital signs: Temp Pulse Resp BP Pulse Ox 98.6 F 101 H 20 145/95 H 95 09/18/18 11:19 09/18/18 11:19 09/18/18 11:19 09/18/18 11:19 09/18/18 11:19 Discharge - Discharge Clinical Impression: Chronic high back pain Chronic low back pain Qualifiers: Back pain laterality: bilateral Sciatica presence: with sciatica Sciatica laterality: bilateral sciatica Qualified Code(s): M54.42 - Lumbago with sciatica, left side Condition: Stable Disposition: HOME, SELF-CARE Instructions: Family Physicians / Practices Additional Instructions: Chronic Back Pain Chronic back pain (pain persisting longer than three months) is a common problem. A medical evaluation can look for herniated disc, arthritis, osteoporosis, tumors, and infections. But at least half the time, there's no obvious treatable cause. Anxiety and depression tend to worsen back pain. Ibuprofen or other anti-inflammatory medicine can help. A heating pad, used for 15-20 minutes at a time, can ease pain. For this type of back pain, narcotic medicines should be avoided. Muscle relaxers are rarely helpful unless you're having spasms. Activity is important. Find an aerobic exercise program that your back can tolerate. Too much rest makes back pain worse. Specific back exercises are usually prescribed to strengthen the back and abdominal muscles. Often, a physical therapist can help. Avoid heavy lifting, working while bent over, or standing with both knees straight. Most back pain patients do better with a firm mattress. If new symptoms of a "herniated disc" (radiation of pain, numbness, or tingling down the back of the leg or weakness in the leg) occur, you should be re-examined. LOW BACK PAIN: Three out of every four people will have an episode of disabling back pain during their lifetime. Most commonly the pain is due to straining of the muscles and ligaments in the low back. Usual treatment includes: (1) Rest on a firm surface. Avoid lying on your stomach. (2) Ice pack the painful area. After a few days, gentle heat may be used intermittently to relax the area, or ice packs can be continued. (3) Medication may be needed -- muscle relaxers and antiinflammatory medicines are commonly used. (4) As the back improves, exercises are prescribed to strengthen the back and abdominal muscles. Your doctor will advise you on the proper care for your back at each stage in your recovery. You may be better in a few days -- or healing may take several weeks. If new symptoms of a "herniated disc" (radiation of pain, numbness, or tingling down the back of the leg or weakness in the leg) occur, you should be re-examined. Further testing may be necessary. ICE PACKS: Apply ice packs frequently against the painful area. Many different schedules are recommended, such as "20 minutes on, 20 minutes off" or "one hour ice, two hours rest." If you need to work, you may need to go longer between ice treatments. You should plan to have the area ice packed AT LEAST one fourth of the time. The ice should be applied over the wrap, tape, or splint, or over a layer of cloth -- not directly against the skin. Some ice bags have a built-in cloth and can be put directly on the skin. WARM PACKS: After approximately two days, apply gentle heat (such as a heating pad or hot water bottle) for about 20 to 30 minutes about every two hours -- at least four times daily. Warmth and elevation will help you make a more rapid recovery, and will ease the pain considerably. Do not use HOT heat, and never apply heat for longer than 30 minutes. The continuous heat can invisibly damage skin and muscles -- even when no burn is seen on the surface. Damaged muscles can make you MORE sore. Anti-Inflammatory Medication You have received a prescription for an antiinflammatory agent. This is an excellent, safe drug for pain control. In addition, it has potent antiinflammatory effects which are beneficial, especially in the treatment of injuries, arthritis, or tendonitis. It's best to take this medicine with food. Persons with ulcer disease or allergy to aspirin should notify their physician of this before taking this drug. Take the medication exactly as prescribed. Don't take additional doses unless instructed to do so by your doctor. If you develop wheezing, shortness of breath, hives, faintness, stomach pain, vomiting, or dark black stools, return for re-evaluation at once. Stretching Exercises for the Back The physician has recommended that you begin stretching exercises for your back. These are often used even while the back is painful. However, you should notify the physician if the activities seem to increase your pain. PELVIC TILT: Lie flat on your back with knees bent. Tighten your stomach and buttock muscles so it flattens your lower back against the floor. Hold 10 seconds. Repeat 10 times, twice daily. KNEE RAISE: Lying on the back with knees bent, raise one knee to your chest, then the other. Hold both knees against the chest 10 seconds, then lower one knee at a time. Repeat 10 times, twice daily. PARTIAL TRUNK RAISE: Lie face down, arms at your sides. Keeping your waist on the floor, use your arms raise your chest up. Support yourself on your elbows for 30 seconds. Repeat twice daily, increasing the time to two minutes as you recover. FOLLOW-UP CARE: If you have been referred to a physician for follow-up care, call the [facility] office for an appointment as you were instructed or within the next two days. If you experience worsening or a significant change in your symptoms, notify the physician immediately or return to the Emergency Department at any time for re-evaluation. Prescriptions: Naproxen 500 mg PO BIDP PRN #20 tablet PRN Reason: Forms: Elevated Blood Pressure, Smoking Cessation Education, Return to Work
== END 2018-09-18 11:54 | disposition home or self-care (01) ==
LOC: ER 10:58
DX: M54.42 Lumbago with sciatica, left side (principal); M54.6 Pain in thoracic spine; G89.29 Other chronic pain; M54.9 Dorsalgia, unspecified; R42 Dizziness and giddiness; I10 Essential (primary) hypertension; E11.9 Type 2 diabetes mellitus without complications; F17.210 Nicotine dependence, cigarettes, uncomplicated
CPT/HCPCS: 99283; 99406

== ENCOUNTER 2018-11-18 11:31 | Emergency (ER) | payer SELFPAY ==
[2018-11-18] MEDS ORDERED: ONDANSETRON HCL INJ/PF 4 MG/2 ML SDV IV ONE (12:49)
[2018-11-18] MEDS ORDERED: IBUPROFEN 800 MG TABLET PO ONE (12:49)
[2018-11-18] MEDS ORDERED: NORMAL SALINE 1000 ML 1,000 ML IV ONE (12:49)
[2018-11-18] MEDS ORDERED: DIPHENHYDRAMINE HCL 25 MG CAPSULE PO ONE (12:51)
--- NOTE | 2018-11-18 12:52 | ER Document Report ---
ED Medical Screen (RME) - General Chief Complaint: Weakness Stated Complaint: DIZZY,HEADACHE Time Seen by Provider: 11/18/18 12:42 Mode of Arrival: Wheelchair Information source: Patient Notes: Patient presents to the emergency department with complaints of dizzy week and migraine headache that started this morning. He reports he did go to work. 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 Reports that he vomited there and when he went to sit down he sat down awkwardly and hit himself in the testicles. He reports no pain in the testicles at this time. Reports he is voiding as normal. Denies fever. Reports he does have migraines on and off. Reports this was different notes more in the back and the front and is throbbing. Patient also complains of some blurry vision. Patient is speaking in clear sentences. Ports he is drank at least 4 bottles of water today and one soda. I have greeted and performed a rapid initial assessment of this patient. A comprehensive ED assessment and evaluation of the patient, analysis of test results and completion of the medical decision making process will be conducted by additional ED providers. Dictation of this chart was performed using voice recognition software; therefore, there may be some unintended grammatical errors. TRAVEL OUTSIDE OF THE [place] IN LAST 30 DAYS: No - Related Data Allergies/Adverse Reactions: acetaminophen [From Tylenol] Allergy (Intermediate, Verified 11/18/18 11:36) VOMITING Past Medical History - Social History Frequency of alcohol use: Rare Drug Abuse: None - Past Medical History Cardiac Medical History: Reports: Hx Hypertension - no meds Pulmonary Medical History: Reports: Hx Sleep Apnea Denies: Hx Asthma Endocrine Medical History: Reports: Hx Diabetes Mellitus Type 2 - no meds Renal/ Medical History: Denies: Hx Peritoneal Dialysis Musculoskeltal Medical History: Reports Hx Arthritis, Reports Hx Musculoskeletal Deformity Past Surgical History: Denies: Hx Pacemaker - Immunizations Immunizations up to date: Yes Hx Diphtheria, Pertussis, Tetanus Vaccination: Yes Physical Exam - Vital signs Vitals: Temp Pulse Resp BP Pulse Ox 98.2 F 119 H 20 150/93 H 95 11/18/18 11:51 11/18/18 11:51 11/18/18 11:51 11/18/18 11:51 11/18/18 11:51 Course - Vital Signs Vital signs: Temp Pulse Resp BP Pulse Ox 98.4 F 93 16 150/87 H 96 11/18/18 19:20 11/18/18 19:20 11/18/18 19:20 11/18/18 19:20 11/18/18 19:20 - Laboratory Result Diagrams: 11/18/18 12:59 11/18/18 12:59 Laboratory results interpreted by me: 11/18/18 11/18/18 11/18/18 12:59 12:59 13:20 WBC 11.6 H Absolute Neutrophils 8.5 H Sodium 135.6 L Chloride 93 L Glucose 301 H Creatine Kinase 181 H Urine Protein >=500 H Urine Glucose (UA) >=500 H Urine Ketones TRACE H Urine Bilirubin SMALL H Urine Urobilinogen 2.0 H Urine Ascorbic Acid 20 H Doctor's Discharge - Discharge Clinical Impression: Dizziness, Hyperglycemia, Headache Condition: Stable Disposition: HOME, SELF-CARE Instructions: Diabetes ([facility]), Hyperglycemia ([facility]) Additional Instructions: Take metformin as directed. Follow-up with primary care in 1 to 2 weeks. Return to the emergency department with worsening or new concerning symptoms. Prescriptions: Metformin HCl [Glucophage 500 mg Tablet] 500 mg PO BID #60 tablet Forms: Elevated Blood Pressure, Smoking Cessation Education
--- NOTE | 2018-11-18 13:03 | RADIOLOGY REPORT (SQ) ---
EXAM DESCRIPTION: CHEST 2 VIEWS COMPLETED DATE/TIME: 11/18/2018 12:43 pm REASON FOR STUDY: Chest pain COMPARISON: 10/15/2014 TECHNIQUE: Frontal and lateral radiographic views of the chest acquired. NUMBER OF VIEWS: Two view. LIMITATIONS: None. FINDINGS: LUNGS AND PLEURA: No pneumothorax. No consolidation or pleural effusion. MEDIASTINUM AND HILAR STRUCTURES: Stable. HEART AND VASCULAR STRUCTURES: Stable. BONES: No acute findings. HARDWARE: None in the chest. OTHER: No other significant finding. IMPRESSION: NO ACUTE FINDINGS. TECHNICAL DOCUMENTATION: JOB ID: [id number] [place]-72 2010 [employer]- All Rights Reserved Reading location - IP/workstation name: [email or web address]
[2018-11-18 13:11] LABS: ABSOLUTE BASOPHILS # (AUTO) 0.1 10^3/uL (0.0-0.2); ABSOLUTE EOSINOPHILS # (AUTO) 0.1 10^3/uL (0.0-0.6); ABSOLUTE LYMPHOCYTES (AUTO) 2.3 10^3/uL (0.5-4.7); ABSOLUTE MONOCYTES (AUTO) 0.7 10^3/uL (0.1-1.4); ABSOLUTE NEUT (AUTO) 8.5 10^3/uL (1.7-8.2); BASOPHILS % (AUTO) 0.7 % (0-2); EOSINOPHILS % (AUTO) 0.8 % (0-6); HEMATOCRIT 46.8 % (37.9-51.0); HEMOGLOBIN 15.9 g/dL (13.5-17.0); LYMPHOCYTES % (AUTO) 19.7 % (13-45); MEAN CORPUSCULAR HEMOGLOBIN 31.2 pg (27.0-33.4); MEAN CORPUSCULAR HGB CONC 33.9 g/dL (32.0-36.0); MEAN CORPUSCULAR VOLUME 92 fl (80-97); MONOCYTES % (AUTO) 5.7 % (3-13); PLATELET COUNT 163 10^3/uL (150-450); RED BLOOD COUNT 5.08 10^6/uL (4.35-5.55); RED CELL DISTRIBUTION WIDTH 13.7 % (11.5-14.0); SEGMENTED NEUTROPHILS % (AUTO) 73.1 % (42-78); TOTAL CELLS COUNTED % (AUTO) 100 %; WHITE BLOOD COUNT 11.6 10^3/uL (4.0-10.5)
[2018-11-18 13:28] LABS: ALANINE AMINOTRANSFERASE 30 U/L (21-72); ALBUMIN 4.6 g/dL (3.5-5.0); ALKALINE PHOSPHATASE 80 U/L (38-126); ANION GAP 13 (5-19); ASPARTATE AMINO TRANSFERASE 26 U/L (17-59); BILIRUBIN,DIRECT 0.3 mg/dL (0.0-0.4); BILIRUBIN,TOTAL 1.3 mg/dL (0.2-1.3); BLOOD UREA NITROGEN 11 mg/dL (7-20); CALCIUM 9.8 mg/dL (8.4-10.2); CARBON DIOXIDE 30 mmol/L (22-30); CHLORIDE 93 mmol/L (98-107); CREATINE KINASE 181 U/L (55-170); GLUCOSE 301 mg/dL (75-110); POTASSIUM 4.3 mmol/L (3.6-5.0); SODIUM 135.6 mmol/L (137-145); TOTAL PROTEIN 8.2 g/dL (6.3-8.2)
[2018-11-18 13:56] LABS: APPEARANCE,URINE SLIGHTLY-CLOUDY; BILIRUBIN,URINE SMALL (NEGATIVE); COLOR,URINE AMBER; GLUCOSE, URINE >=500 mg/dL (NEGATIVE); KETONES,URINE TRACE mg/dL (NEGATIVE); LEUKOCYTE ESTERASE,URINE NEGATIVE (NEGATIVE); NITRITE,URINE NEGATIVE (NEGATIVE); PROTEIN,URINE >=500 mg/dL (NEGATIVE); URINE SPECIFIC GRAVITY 1.029
--- NOTE | 2018-11-18 19:06 | ER Document Report ---
ED General - General Chief Complaint: Weakness Stated Complaint: DIZZY,HEADACHE Time Seen by Provider: 11/18/18 12:42 Mode of Arrival: Wheelchair TRAVEL OUTSIDE OF THE [place] IN LAST 30 DAYS: No - HPI Notes: Patient is a 38-year-old male presents to the emergency department for estelita luation. He states he went to work this morning. He felt very dizzy and nauseated. He had one episode of emesis. He denies any recent head injuries. He states his had some intermittent blurry vision. He does work outside. He states he tries to stay very hydrated by drinking water. He denies any polyuria. - Related Data Allergies/Adverse Reactions: acetaminophen [From Tylenol] Allergy (Intermediate, Verified 11/18/18 11:36) VOMITING Past Medical History - General Information source: Patient - Social History Smoking Status: Current Every Day Smoker Frequency of alcohol use: Rare Drug Abuse: None Family History: Reviewed & Not Pertinent, Hypertension - Younger brother, Malignancy - Mother with pancreatic cancer Patient has suicidal ideation: No Patient has homicidal ideation: No - Past Medical History Cardiac Medical History: Reports: Hx Hypertension - no meds Pulmonary Medical History: Reports: Hx Sleep Apnea Denies: Hx Asthma Endocrine Medical History: Reports: Hx Diabetes Mellitus Type 2 - no meds Renal/ Medical History: Denies: Hx Peritoneal Dialysis Musculoskeletal Medical History: Reports Hx Arthritis, Reports Hx Musculoskeletal Deformity Past Surgical History: Denies: Hx Pacemaker - Immunizations Immunizations up to date: Yes Hx Diphtheria, Pertussis, Tetanus Vaccination: Yes Review of Systems - Review of Systems Constitutional: See HPI EENT: No symptoms reported Cardiovascular: No symptoms reported Respiratory: No symptoms reported Gastrointestinal: See HPI Genitourinary: No symptoms reported Musculoskeletal: No symptoms reported Skin: No symptoms reported Neurological/Psychological: No symptoms reported Physical Exam - Vital signs Vitals: Temp Pulse Resp BP Pulse Ox 98.2 F 119 H 20 150/93 H 95 11/18/18 11:51 11/18/18 11:51 11/18/18 11:51 11/18/18 11:51 11/18/18 11:51 - Notes Notes: Vital signs reviewed, please refer to chart. Head is normocephalic, atraumatic. Pupils equal round, reactive to light. Neck is supple without meningismus. Heart is regular rate and rhythm. Lungs are clear to auscultation bilaterally. Abdomen is soft, nontender, normoactive bowel sounds throughout. Extremities without cyanosis, clubbing. Posterior calves are nontender. Peripheral pulses are equal. Skin is warm and dry. Patient is awake, alert, oriented x3. Cranial nerves II - XII are grossly intact without focal neurological deficits. Strength is plus 5 out of 5 bilateral upper and lower extremities. Sensation is intact. Reflexes symmetrical. Intact [id number], rapid alternating movements, [id number]. Course - Re-evaluation Re-evalutation: 11/18/18 19:04 Patient presented to the emergency department for evaluation. Upon my initial evaluation, the patient had already had initial laboratory investigations and imaging as ordered through triage. He was extremely annoyed at his length of stay. We did eventually discuss his findings. I believe that his findings are largely secondary to hypoglycemia. He is mildly hyponatremic, but this is likely as a result of his elevated glucoses. I will go ahead and start the patient on metformin. [facility], as he currently does not have insurance. I also explained to him that his blood pressure was elevated here, but that he may be able to institute lifestyle changes that could help with both his diabetes as well as his high blood pressure. He voiced understanding. He was also urged to quit smoking. Again I will go ahead and start him on metformin. He is to follow-up with primary care, return to the ED with worsening or new concerning symptoms of any sort. - Vital Signs Vital signs: Temp Pulse Resp BP Pulse Ox 98.2 F 119 H 20 150/93 H 95 11/18/18 11:51 11/18/18 11:51 11/18/18 11:51 11/18/18 11:51 11/18/18 11:51 - Laboratory Result Diagrams: 11/18/18 12:59 11/18/18 12:59 Laboratory results interpreted by me: 11/18/18 11/18/18 11/18/18 12:59 12:59 13:20 WBC 11.6 H Absolute Neutrophils 8.5 H Sodium 135.6 L Chloride 93 L Glucose 301 H Creatine Kinase 181 H Urine Protein >=500 H Urine Glucose (UA) >=500 H Urine Ketones TRACE H Urine Bilirubin SMALL H Urine Urobilinogen 2.0 H Urine Ascorbic Acid 20 H - Diagnostic Test Radiology reviewed: Reports reviewed Radiology results interpreted by me: 11/18/18 19:04 Chest X-Ray 11/18/18 00:00 IMPRESSION: NO ACUTE FINDINGS. - EKG Interpretation by Me Additional EKG results interpreted by me: 11/18/18 19:04 Sinus tachycardia with a rate of 112 bpm. Left axis deviation. Incomplete right bundle branch block. Nonspecific ST changes, but no acute changes concerning for ischemia or infarction. Discharge - Discharge Clinical Impression: Dizziness, Hyperglycemia, Headache Condition: Stable Disposition: HOME, SELF-CARE Instructions: Hyperglycemia ([facility]), Diabetes ([facility]) Additional Instructions: Take metformin as directed. Follow-up with primary care in 1 to 2 weeks. Return to the emergency department with worsening or new concerning symptoms. Forms: Smoking Cessation Education, Elevated Blood Pressure
[2018-11-18 19:23] VITALS: BP 150/87
--- NOTE | 2018-11-19 18:40 | EKG REPORT ---
SEVERITY:- ABNORMAL ECG - SINUS TACHYCARDIA IVCD POOR R WAVE PROGRESSION ANTERIOR LEADS. : Confirmed by: Morgan Coe MD 19-Nov-2018 18:39:58
== END 2018-11-18 19:24 | disposition home or self-care (01) ==
LOC: ER 11:31
DX: E11.65 Type 2 diabetes mellitus with hyperglycemia (principal); E87.1 Hypo-osmolality and hyponatremia; I45.10 Unspecified right bundle-branch block; R51 Headache; R42 Dizziness and giddiness; R11.0 Nausea; H53.8 Other visual disturbances; R00.0 Tachycardia, unspecified; I10 Essential (primary) hypertension; F17.200 Nicotine dependence, unspecified, uncomplicated; Z88.8 Allergy status to other drugs, medicaments and biological substances
CPT/HCPCS: 93005; 99285; 96361; 96374; 36415; 82550; 85025; 80053; 81001; 71046; 93010; J2405; J7030

== ENCOUNTER 2018-12-16 10:31 | Emergency (ER) | payer SELFPAY ==
--- NOTE | 2018-12-16 11:17 | ER Document Report ---
ED Medical Screen (RME) - General Chief Complaint: Dizziness Stated Complaint: DIZZINESS Time Seen by Provider: 12/16/18 11:13 Notes: HPI: 38-year-old male with many complaints here for pain in the middle of his posterior back that radiates up to his neck bilaterally for the last several days. He was seen at [facility] and that the provider they would not provide him any narcotics and discharged him on naproxen which she states is not helping his pain. He denies any numbness, tingling, weakness. He denies any trauma or injury. He is unsure if he has had any imaging of his neck or back recently. Was seen here about a month ago for similar and diagnosed with type 2 diabetes and placed on metformin. He was also recently put on lisinopril about 2 weeks ago and states he has been dizzy and nauseous and weak since. He states his blood pressure however still remain elevated despite taking lisinopril. He is also on naproxen however with lisinopril. He states muscle relaxers do not work for him. He is well versed in his narcotic names. Pain worse with movement and palpation. Is better with rest. 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 No spinal surgeries. Denies IV drug use. No other complaints at this time. He does not check his sugars often. He endorses medication compliance. States he eats and drinks enough throughout the day. He denies any syncope. Denies any prior history of cad or heart arrhythmias. He h as never had a stress test. ROS neg to include 10 systems, unless mentioned in the hpi. PE:>>>> PHYSICAL_EXAM: GENERAL_APPEARANCE: well_nourished, alert, cooperative, no_acute_distress, no_obvious_discomfort. pleasant, obese young white male, fab appears slightly older than stated age, smiling, speaking in full sentences, in no sign of pain or resp distress, no one is with him VITALS: reviewed, see vital signs table. HEAD: no_swelling\tenderness on the head. normocephalic. atraumatic. no tellez signs. no raccoons eyes. EYES: PERRL, EOMI, conjunctiva_clear. NOSE: no_nasal_discharge. MOUTH: (-)decreased moisture. THROAT: no_tonsilar_inflammation, no_airway_obstruction. no_lymphadenopathy NECK: supple, no midline neck_tenderness, full rom with pain on neck flexion, extension, lateral bending. full strength. no meningeal signs. no sign of central cord syndrome. There is tenderness to palpation of the bilateral paracervical and upper parathoracic musculature and rhomboid region bilaterally that does reproduce the patient's neck and back pain exactly. Spasm noted. No overlying skin changes. BACK: no midline_back_tenderness. CHEST_WALL: no_chest_tenderness. no overlying skin changes LUNGS: no_wheezing, ctab (-)accessory muscle use, good air exchange bilat eral. HEART: normal_rate, normal_rhythm, ABDOMEN: normal_BS, soft, no_abd_tenderness, (-)guarding, (-)rebound, no distension or peritoneal signs. no cva ttp EXTREMITIES: strength 5/5 in all_extremities, good pulses in all_extremities, no_swelling\tenderness in the extremities, no_edema. full rom. normal gait. good pulses. brisk cap refill. 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 neg drop can test NEURO: motor and sensation intact, SKIN: warm, dry, good_color, no_rash. MENTAL_STATUS: speech_clear, oriented_X_3, normal_affect, responds_appropriately to questions. MDM: I have ordered labs and initial work-up and patient will be transferred to the main ER for further work-up. I have greeted and performed a rapid initial assessment of this patient. A comprehensive ED assessment and evaluation of the patient, analysis of test results and completion of medical decision making process will be conducted by an additional ED providers. Documentation achieved through voice recording which my lead to some occasional accidental typographical errors. Extensive efforts have been made to proof read documentation to make sure these are the least as possible Temp Pulse Resp BP Pulse Ox 12/16/18 10:51 98.5 F 108 H 19 140/93 H 95 Category Date Time Status Orthostatic Vital Sign (ED) NOW Care 12/16/18 11:36 Ordered CBC WITH DIFF [HEME] Stat Lab 12/16/18 11:35 Ordered COMPREHENSIVE METABOLIC PANEL [CHEM] Stat Lab 12/16/18 11:35 Ordered CREATINE KINASE [CHEM] Stat Lab 12/16/18 11:35 Ordered MAGNESIUM [CHEM] Stat Lab 12/16/18 11:36 Ordered T4 [FREE T4 (FREE THYROXINE)] [CHEM] Stat Lab 12/16/18 11:36 Ordered THYROID STIMULATING HORMONE [CHEM] Stat Lab 12/16/18 11:36 Ordered TROPONIN I [CHEM] Stat Lab 12/16/18 11:35 Ordered URINALYSIS [URIN] Stat Lab 12/16/18 11:36 Uncollected Normal Saline 1000 ml [NaCl 0.9% 1000 ml IV Soln] 1,000 Med 12/16/18 11:37 Ordered ml IV BOLUS Category Date Time Status EKG Documentation STAT Care 12/16/18 12:12 Ordered EKG Documentation STAT Care 12/16/18 12:12 Ordered Orthostatic Vital Sign (ED) NOW Care 12/16/18 11:36 Ordered CBC WITH DIFF [HEME] Stat Lab 12/16/18 11:35 Ordered COMPREHENSIVE METABOLIC PANEL [CHEM] Stat Lab 12/16/18 11:35 Ordered CREATINE KINASE [CHEM] Stat Lab 12/16/18 11:35 Ordered MAGNESIUM [CHEM] Stat Lab 12/16/18 11:36 Ordered T4 [FREE T4 (FREE THYROXINE)] [CHEM] Stat Lab 12/16/18 11:36 Ordered THYROID STIMULATING HORMONE [CHEM] Stat Lab 12/16/18 11:36 Ordered TROPONIN I [CHEM] Stat Lab 12/16/18 11:35 Ordered URINALYSIS [URIN] Stat Lab 12/16/18 11:36 Uncollected Normal Saline 1000 ml [NaCl 0.9% 1000 ml IV Soln] 1,000 Med 12/16/18 11:37 Ordered ml IV BOLUS EKG ER ONLY [ER] Stat Oth 12/16/18 Ordered TRAVEL OUTSIDE OF THE [place] IN LAST 30 DAYS: No - Related Data Allergies/Adverse Reactions: acetaminophen [From Tylenol] Allergy (Intermediate, Verified 12/16/18 10:43) VOMITING Past Medical History - Social History Chew tobacco use (# tins/day): No Frequency of alcohol use: None Drug Abuse: None - Past Medical History Cardiac Medical History: Reports: Hx Hypertension - no meds Pulmonary Medical History: Reports: Hx Sleep Apnea Denies: Hx Asthma Endocrine Medical History: Reports: Hx Diabetes Mellitus Type 2 - no meds Renal/ Medical History: Denies: Hx Peritoneal Dialysis Musculoskeltal Medical History: Reports Hx Arthritis, Reports Hx Musculoskeletal Deformity Past Surgical History: Denies: Hx Pacemaker - Immunizations Immunizations up to date: Yes Hx Diphtheria, Pertussis, Tetanus Vaccination: Yes Physical Exam - Vital signs Vitals: Temp Pulse Resp BP Pulse Ox 98.5 F 108 H 19 140/93 H 95 12/16/18 10:51 12/16/18 10:51 12/16/18 10:51 12/16/18 10:51 12/16/18 10:51 Course - Vital Signs Vital signs: Temp Pulse Resp BP Pulse Ox 98.5 F 108 H 19 140/93 H 95 12/16/18 10:51 12/16/18 10:51 12/16/18 10:51 12/16/18 10:51 12/16/18 10:51 - Laboratory Result Diagrams: 12/16/18 11:50 12/16/18 11:50 Laboratory results interpreted by me: 12/16/18 12/16/18 11:05 11:50 POC Glucose 226 H Urine Protein 100 H Urine Glucose (UA) >=500 H Urine Ketones TRACE H Urine Ascorbic Acid 20 H
[2018-12-16] MEDS ORDERED: NORMAL SALINE 1000 ML 1,000 ML IV ONE (11:37)
[2018-12-16 12:06] LABS: APPEARANCE,URINE CLOUDY; BILIRUBIN,URINE NEGATIVE (NEGATIVE); COLOR,URINE AMBER; GLUCOSE, URINE >=500 mg/dL (NEGATIVE); KETONES,URINE TRACE mg/dL (NEGATIVE); LEUKOCYTE ESTERASE,URINE NEGATIVE (NEGATIVE); NITRITE,URINE NEGATIVE (NEGATIVE); PROTEIN,URINE 100 mg/dL (NEGATIVE); URINE SPECIFIC GRAVITY 1.031; UROBILINOGEN,URINE NEGATIVE mg/dL (<2.0)
[2018-12-16 12:08] LABS: ABSOLUTE BASOPHILS # (AUTO) 0.1 10^3/uL (0.0-0.2); ABSOLUTE EOSINOPHILS # (AUTO) 0.2 10^3/uL (0.0-0.6); ABSOLUTE LYMPHOCYTES (AUTO) 3.1 10^3/uL (0.5-4.7); ABSOLUTE MONOCYTES (AUTO) 0.9 10^3/uL (0.1-1.4); ABSOLUTE NEUT (AUTO) 7.7 10^3/uL (1.7-8.2); BASOPHILS % (AUTO) 0.6 % (0-2); EOSINOPHILS % (AUTO) 1.5 % (0-6); HEMATOCRIT 48.3 % (37.9-51.0); HEMOGLOBIN 16.4 g/dL (13.5-17.0); LYMPHOCYTES % (AUTO) 26.2 % (13-45); MEAN CORPUSCULAR HEMOGLOBIN 31.7 pg (27.0-33.4); MEAN CORPUSCULAR VOLUME 93 fl (80-97); MONOCYTES % (AUTO) 7.3 % (3-13); PLATELET COUNT 182 10^3/uL (150-450); RED BLOOD COUNT 5.18 10^6/uL (4.35-5.55); RED CELL DISTRIBUTION WIDTH 14.1 % (11.5-14.0); SEGMENTED NEUTROPHILS % (AUTO) 64.4 % (42-78); TOTAL CELLS COUNTED % (AUTO) 100 %
[2018-12-16 12:27] LABS: ALKALINE PHOSPHATASE 67 U/L (38-126); ANION GAP 10 (5-19); ASPARTATE AMINO TRANSFERASE 27 U/L (17-59); BILIRUBIN,DIRECT 0.4 mg/dL (0.0-0.4); BILIRUBIN,TOTAL 1.5 mg/dL (0.2-1.3); BLOOD UREA NITROGEN 22 mg/dL (7-20); CALCIUM 10.3 mg/dL (8.4-10.2); CARBON DIOXIDE 31 mmol/L (22-30); CHLORIDE 94 mmol/L (98-107); GLUCOSE 224 mg/dL (75-110); TOTAL PROTEIN 8.5 g/dL (6.3-8.2)
[2018-12-16 12:43] LABS: FREE T4 (FREE THYROXINE) 1.26 ng/dL (0.78-2.19)
[2018-12-16 12:57] LABS: THYROID STIMULATING HORMONE 1.32 uIU/mL (0.47-4.68)
--- NOTE | 2018-12-16 13:55 | RADIOLOGY REPORT (SQ) ---
EXAM DESCRIPTION: CHEST 2 VIEWS COMPLETED DATE/TIME: 12/16/2018 1:44 pm REASON FOR STUDY: Chest pain COMPARISON: 11/18/2018. EXAM PARAMETERS: NUMBER OF VIEWS: two views TECHNIQUE: Digital Frontal and Lateral radiographic views of the chest acquired. RADIATION DOSE: NA LIMITATIONS: none FINDINGS: LUNGS AND PLEURA: No opacities, masses or pneumothorax. No pleural effusion. MEDIASTINUM AND HILAR STRUCTURES: No masses or contour abnormalities. HEART AND VASCULAR STRUCTURES: Heart normal size. No evidence for failure. BONES: No acute findings. HARDWARE: None in the chest. OTHER: No other significant finding. IMPRESSION: NO ACUTE RADIOGRAPHIC FINDING IN THE CHEST. TECHNICAL DOCUMENTATION: JOB ID: [id number] [employer]- All Rights Reserved Reading location - IP/workstation name: [email or web address]
[2018-12-16 14:15] VITALS: BP 138/80
--- NOTE | 2018-12-16 14:15 | ER Document Report ---
ED General - General Chief Complaint: Dizziness Stated Complaint: DIZZINESS Time Seen by Provider: 12/16/18 11:13 Notes: Patient is complaining of pain between his shoulder blades that started on Sunday while he was just standing around at work. 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 Is been extremely hot here for the past few weeks. Sunday and Sunday, patient says he did not feel anything and then today, he is having that pain again that seems to be progressing. He is also felt some dizziness and blurred vision. Patient checked with his primary care provider at [facility] and they advised him to come here to be further evaluated. Patient says he is only having a little bit of chest pains in the lower sub-xiphoid region of the chest. Has not had any recent cough or cold or chest congestion. Denies any difficulty breathing or shortness of breath. Is a cigarette smoker. Has not had any recent fevers. Patient's been on metformin for the past month for NIDDM and is been on lisinopril for his blood pressure since but this past Sunday. Has never been told he has any heart disease. Reviewing the patient's visits, he has had several visits here in the recent couple of years for back pain. He is very first persistent in wanting pain medication. Patient says Tylenol does not work for his pains and neither does naproxen or any of those medications. TRAVEL OUTSIDE OF THE [place] IN LAST 30 DAYS: No - Related Data Allergies/Adverse Reactions: acetaminophen [From Tylenol] Allergy (Intermediate, Verified 12/16/18 10:43) VOMITING Past Medical History - Social History Smoking Status: Current Every Day Smoker Chew tobacco use (# tins/day): No Frequency of alcohol use: None Drug Abuse: None Family History: Reviewed & Not Pertinent, Hypertension - Younger brother, Malignancy - Mother with pancreatic cancer Patient has suicidal ideation: No Patient has homicidal ideation: No - Past Medical History Cardiac Medical History: Reports: Hx Hypertension - no meds Pulmonary Medical History: Reports: Hx Sleep Apnea Denies: Hx Asthma Endocrine Medical History: Reports: Hx Diabetes Mellitus Type 2 - no meds Musculoskeletal Medical History: Reports Hx Arthritis, Reports Hx Musculoskeletal Deformity - Immunizations Immunizations up to date: Yes Hx Diphtheria, Pertussis, Tetanus Vaccination: Yes Review of Systems - Review of Systems Notes: REVIEW OF SYSTEMS: CONSTITUTIONAL : Denies fever. EENT: Denies eye, ear, nose or mouth or throat pain or other symptoms. CARDIOVASCULAR: Denies chest pain except for occasional minimal little pain in the sub-xiphoid region. RESPIRATORY: Denies cough, chest congestion, or shortness of breath. GASTROINTESTINAL: Denies abdominal pain or nausea, vomiting, or diarrhea. GENITOURINARY: Denies difficulty or painful urinating, urinary frequency, blood in urine. MUSCULOSKELETAL: Denies back or neck pain. Denies joint pain or swelling. SKIN: Denies rash or skin lesions. NEUROLOGICAL: Denies LOC or altered mental status. Denies headache. Denies sensory loss or motor deficits. ALL OTHER SYSTEMS REVIEWED AND NEGATIVE. Physical Exam - Vital signs Vitals: Temp Pulse Resp BP Pulse Ox 98.5 F 108 H 19 140/93 H 95 12/16/18 10:51 12/16/18 10:51 12/16/18 10:51 12/16/18 10:51 12/16/18 10:51 Interpretation: Tachycardic - Heart rate 108 at triage. Notes: PHYSICAL EXAMINATION: GENERAL: Well-appearing, in no acute distress. HEAD: Atraumatic, normocephalic. EYES: Pupils equal round and reactive to light, extraocular movements intact. ENT: oropharynx clear without exudates. Moist mucous membranes. NECK: Normal range of motion, supple. LUNGS: Breath sounds clear and equal bilaterally. HEART: Regular rate and rhythm without murmurs. Pulses full and equal in both radial arteries. Pulses full and equal in both dorsalis pedis pulses.. Heart rate 98 on EKG. ABDOMEN: Soft, nontender. No guarding or rebound. No masses. BACK: No tenderness throughout entire back. EXTREMITIES: Normal range of motion without pain. NEUROLOGICAL: Normal speech, normal gait. Normal sensory, motor, and reflex exams. Awake, alert, and oriented x3. Cranial nerves normal. PSYCH: Normal mood, normal affect. SKIN: Warm, dry, no rashes. Course - Re-evaluation Re-evalutation: 12/16/18 19:24 Patient looks comfortable throughout his stay. Frequently asked for pain medications. Does not appear to be in significant pain to my examination. I went over patient's lab findings of low sodium and believe he is probably drinking too much water and this is dilutional hyponatremia and suggested he drink more liquids with electrolytes like Gatorade and sodas that have sodium. Also went over the slight elevation that he has of his CPK and the significance of it and suggested he drink plenty fluids and return for reevaluation if he notices blood or dark-colored urine. I am unable to determine a reason for the patient's pain. All of his work-up and labs are all essentially normal except the CPK elevation and his electrolytes. His EKG is unchanged from previous one. His chest x-ray does not show any cardiovascular enlargement or abnormal shape. Patient does not have symptoms and does not present like I would expect for a person with a pulmonary embolus and therefore I do not think we need to do a CTA of his chest at this time. - Vital Signs Vital signs: Temp Pulse Resp BP Pulse Ox 98.5 F 108 H 27 H 138/80 H 89 L 12/16/18 10:51 12/16/18 10:51 12/16/18 14:01 12/16/18 14:01 12/16/18 14:01 - Laboratory Result Diagrams: 12/16/18 11:50 12/16/18 11:50 Laboratory results interpreted by me: 12/16/18 12/16/18 12/16/18 11:05 11:50 11:50 WBC 12.0 H RDW 14.1 H Sodium 134.8 L Chloride 94 L Carbon Dioxide 31 H BUN 22 H Glucose 224 H POC Glucose 226 H Calcium 10.3 H Total Bilirubin 1.5 H Creatine Kinase Total Protein 8.5 H Urine Protein Urine Glucose (UA) Urine Ketones Urine Ascorbic Acid 12/16/18 12/16/18 11:50 11:50 WBC RDW Sodium Chloride Carbon Dioxide BUN Glucose POC Glucose Calcium Total Bilirubin Creatine Kinase 268 H Total Protein Urine Protein 100 H Urine Glucose (UA) >=500 H Urine Ketones TRACE H Urine Ascorbic Acid 20 H - EKG Interpretation by Me EKG shows normal: Sinus rhythm Rate: Normal When compared to previous EKG there are: No significant change - Patient had a previous EKG here on November 18 of this year and his heart rate was 112 and the morphology of the leads are identical between that EKG in the morning today. Discharge - Discharge Clinical Impression: Back pain, Hyponatremia, Elevated CPK Condition: Stable Disposition: HOME, SELF-CARE Additional Instructions: Hyponatremia You have an abnormally low level of serum sodium, called hyponatremia. Low serum sodium may cause weakness, fatigue, confusion, or even seizures. Usually, low sodium is due to taking diuretics (water pills), combined with drinking too much water. It can also be due to excessive vomiting or diarrhea. If no obvious cause is evident, further evaluation will be necessary. If the hyponatremia results from taking diuretics, it's treated by restricting the amount of water you can drink. If it's due to vomiting and diarrhea, it's treated by drinking liberal amounts of rehydration solution (for example Lytren or Pedialyte). A follow-up blood test is often done to see that the sodium is returning to normal. Call the physician if you have severe weakness, muscle twitching or cramping, palpitations (pounding or irregular heartbeat), confusion, headache, seizures, or any other new or alarming symptoms. Drink more fluids with sodium such as Gatorade and sodas that have sodium. You can use an occasional salt tablet a few times a day, as well, but this problem is mostly the result of drinking too much water and is better corrected by drinking more liquids other than water. LOW BACK PAIN: Three out of every four people will have an episode of disabling back pain during their lifetime. Most commonly the pain is due to straining of the muscles and ligaments in the low back. Usual treatment includes: (1) Rest on a firm surface. Avoid lying on your stomach. (2) Ice pack the painful area. After a few days, gentle heat may be used interm ittently to relax the area, or ice packs can be continued. (3) Medication may be needed -- muscle relaxers and antiinflammatory medicines are commonly used. (4) As the back improves, exercises are prescribed to strengthen the back and abdominal muscles. Your doctor will advise you on the proper care for your back at each stage in your recovery. You may be better in a few days -- or healing may take several weeks. If new symptoms of a "herniated disc" (radiation of pain, numbness, or tingling down the back of the leg or weakness in the leg) occur, you should be re-examined. Further testing may be necessary. I could not find a cause for the pain that you are experiencing. It sounds musculoskeletal in nature and your work-up is essentially normal with minor exceptions. ORAL NARCOTIC MEDICATION: You have been given a prescription for pain control. This medication is a narcotic. It's best taken with food, as nausea can result if taken on an empty stomach. Don't operate machinery or drive within six hours of taking this medication. Do not combine this medicine with alcohol, or with any medication which can cause sedation (such as cold tablets or sleeping pills) unless you get permission from the physician. Narcotics tend to cause constipation. If possible, drink plenty of fluids and eat a diet high in fiber and fruits. Please be aware that prescription narcotics also have the potential for abuse. People become addicted to these medications because of the general sense of wellbeing that they induce. This feeling along with a significant reduction in tension, anxiety, and aggression provides a stimulating seductive quality to these drugs. Once your pain is under control, we encourage you to discard your unused narcotics. Elevated creatinine phosphokinase or CPK. You have a slightly elevated CPK level in your bloodstream. This comes from muscle breakdown which can occur from activity or overheating and sometimes from chemicals and medications. The treatment for this condition is to drink plenty of fluids, flush the chemical out of your system. Return for reevaluation if you develop blood in your urine or very dark urine. FOLLOW-UP CARE: If you have been referred to a physician for follow-up care, call the physician s office for an appointment as you were instructed or within the next two days. If you experience worsening or a significant change in your symptoms, notify the physician immediately or return to the Emergency Department at any time for re- evaluation. Return for reevaluation if you develop new or worsening symptoms.. In particular, if you develop chest pains, difficulty breathing, or other symptoms, come back for reevaluation. Follow-up with your primary care provider for additional pain medications. Prescriptions: Oxycodone HCl [Oxaydo] 5 mg PO QIDP PRN #12 tablet.orl PRN Reason:
--- NOTE | 2018-12-17 09:39 | EKG REPORT ---
SEVERITY:- ABNORMAL ECG - SINUS RHYTHM PROBABLE LEFT ATRIAL ABNORMALITY LEFT ANTERIOR FASCICULAR BLOCK : Confirmed by: Yola Werner 17-Dec-2018 09:38:38
== END 2018-12-16 14:43 | disposition home or self-care (01) ==
LOC: ER 10:31
DX: M54.9 Dorsalgia, unspecified (principal); E87.1 Hypo-osmolality and hyponatremia; R74.8 Abnormal levels of other serum enzymes; R42 Dizziness and giddiness; H53.8 Other visual disturbances; R07.9 Chest pain, unspecified; F17.210 Nicotine dependence, cigarettes, uncomplicated; E11.9 Type 2 diabetes mellitus without complications; Z79.84 Long term (current) use of oral hypoglycemic drugs; Z79.899 Other long term (current) drug therapy; I10 Essential (primary) hypertension
CPT/HCPCS: 93005; 36415; 84439; 82962; 82550; 83735; 84443; 85025; 80053; 81001; 84484; 71046; 93010; J7030; 96360; 99284

== ENCOUNTER 2019-03-12 07:25 | Emergency (ER) | payer SELFPAY ==
[2019-03-12] MEDS ORDERED: LIDOCAINE 1% INJ-PF (10 MG/ML) 30 ML SDV INJ ONE (09:11)
--- NOTE | 2019-03-12 09:12 | ER Document Report ---
ED General - General Chief Complaint: Abscess Stated Complaint: POSSIBLE INSECT BITE Time Seen by Provider: 03/12/19 09:06 TRAVEL OUTSIDE OF THE [place] IN LAST 30 DAYS: No - HPI Notes: 38-year-old male type II diabetic presenting with a chief complaint of "insect bite" right buttock. Onset 3 days ago. Duration persistent. Quality aching. Location right buttock. Precipitating factors: Patient does not specifically recall being bitten by an insect. Relieving factors none. Severity moderate. Pertinent prior history: Diabetes mellitus type 2 for which he takes metformin. Also has a history of hypertension. Reports allergy to acetaminophen "hives". Pertinent negatives: Denies fever, chills, nausea or vomiting. - Related Data Allergies/Adverse Reactions: acetaminophen [From Tylenol] Allergy (Intermediate, Verified 03/12/19 07:34) VOMITING Home Medications: lisinopril, metformin Past Medical History - General Information source: Patient - Social History Smoking Status: Current Every Day Smoker Chew tobacco use (# tins/day): No Frequency of alcohol use: None Drug Abuse: None Family History: Reviewed & Not Pertinent, Hypertension - Younger brother, Malignancy - Mother with pancreatic cancer Patient has suicidal ideation: No Patient has homicidal ideation: No - Past Medical History Cardiac Medical History: Reports: Hx Hypertension - no meds Pulmonary Medical History: Reports: Hx Sleep Apnea Denies: Hx Asthma Endocrine Medical History: Reports: Hx Diabetes Mellitus Type 2 - no meds Renal/ Medical History: Denies: Hx Peritoneal Dialysis Musculoskeletal Medical History: Reports Hx Arthritis, Reports Hx Musculoskeletal Deformity Past Surgical History: Denies: Hx Pacemaker - Immunizations Immunizations up to date: Yes Hx Diphtheria, Pertussis, Tetanus Vaccination: Yes Review of Systems - Review of Systems Notes: Constitutional: Negative for fever. HENT: Negative for sore throat. Eyes: Negative for visual changes. Cardiovascular: Negative for chest pain. Respiratory: Negative for shortness of breath. Gastrointestinal: Negative for abdominal pain, vomiting or diarrhea. Genitourinary: Negative for dysuria. Musculoskeletal: Negative for back pain. Skin: As per HPI. Neurological: Negative for headaches, weakness or numbness. 10 point ROS negative except as marked above and in HPI. Physical Exam - Vital signs Vitals: Temp Pulse Resp BP Pulse Ox 98.7 F 110 H 16 166/99 H 94 03/12/19 07:32 03/12/19 07:32 03/12/19 07:32 03/12/19 07:32 03/12/19 07:32 Notes: GENERAL: Well-developed well-nourished appearing in no acute distress. SKIN: 3.0 cm area of redness fluctuance and tenderness with some superficial excoriation noted over the inferomedial aspect of the right buttock. HEAD: Normocephalic atraumatic. EYES: PERRLA. Conjunctivae and sclerae clear. EARS: CANALS AND TMS CLEAR. NOSE: CLEAR. MOUTH: Moist mucosa. Good dentition. No stridor or edema. No drooling. NECK: Supple. No masses or thyromegaly. No adenopathy. Carotids 2+ without bruits. No JVD. BACK: Symmetrical without tenderness. CHEST: Respirations unlabored. Breath sounds clear and symmetrical. HEART: Regular rhythm. No murmur gallop or rub. ABDOMEN: Soft nontender without masses, organomegaly or rebound. Bowel sounds normally active. No bruits. GENITALIA: Deferred. EXTREMITIES: No edema. No calf tenderness. Cap refill less than 1.5 seconds. Dorsalis pedis and posterior tibial pulses 3+ and symmetrical. NEUROLOGICAL: GCS 15. Alert and oriented x3. Normal gait. Fluent speech. Cranial nerves II through XII intact. Sensorimotor and cerebellar normal. Normal tone. Course - Vital Signs Vital signs: Temp Pulse Resp BP Pulse Ox 98.7 F 110 H 16 166/99 H 94 03/12/19 07:32 03/12/19 07:32 03/12/19 07:32 03/12/19 07:32 03/12/19 07:32 - Laboratory Laboratory results interpreted by me: 03/12/19 09:15 POC Glucose 238 H Procedures - Incision and Drainage Right Lower Buttock Type: Simple Anesthetic type: 1% Lidocaine Blade size: 11 Needle Size: 18 I&D procedure: Betadine prep applied, Shurclens applied, Iodoform packing placed, Aspiration Incision Method: Incision made by scalpel Amount/type of drainage: 3 ml Discharge - Discharge Clinical Impression: Abscess of buttock, right, diabetes mellitus type 2 Condition: Stable Disposition: HOME, SELF-CARE Instructions: Abscess (OM), Trimethoprim-Sulfa (OM) Additional Instructions: Increase metformin to 500 mg twice daily. Follow-up with primary care provider as directed. Prescriptions: Sulfamethoxazole/Trimethoprim [Septra-Ds 800-160 mg Tablet] 1 tab PO BID 10 Days #20 tablet Forms: Return to Work Referrals: [facility] [Provider Group] - Follow up as needed
[2019-03-12 09:58] VITALS: BP 146/99
== END 2019-03-12 09:54 | disposition home or self-care (01) ==
LOC: ER 07:25
DX: L02.31 Cutaneous abscess of buttock (principal); S30.860A Insect bite (nonvenomous) of lower back and pelvis, initial encounter; W57.XXXA Bitten or stung by nonvenomous insect and other nonvenomous arthropods, initial encounter; E11.9 Type 2 diabetes mellitus without complications; F17.200 Nicotine dependence, unspecified, uncomplicated; I10 Essential (primary) hypertension; Z88.6 Allergy status to analgesic agent; Z79.84 Long term (current) use of oral hypoglycemic drugs
CPT/HCPCS: 99283; 82962; 10060; A6266; J3490

== ENCOUNTER 2019-05-20 09:12 | Emergency (ER) | payer SELFPAY ==
[2019-05-20 09:39] VITALS: BP 151/101
[2019-05-20] MEDS ORDERED: KETOROLAC TROMETHAMINE 60 MG/2 ML SDV IM ONE (10:30)
--- NOTE | 2019-05-20 10:37 | ER Document Report ---
HPI - HPI Time Seen by Provider: 05/20/19 10:23 Pain Level: 5 Notes: Patient is a 38-year-old male with a history of hypertension and diabetes who presents complaining of infection of the left lateral mouth area that is been present for the last few days. Patient states that it started out as small to pimples that he tried to pop the other day which then progressed and now he has swelling and more pain to the area. He is able to eat and drink without difficulty, but does have pain in doing so. He is urinating normally. He does have an allergy to Tylenol. No history of MRSA. Denies any headache, fever, neck pain, URI, sore throat, chest pain, palpitations, syncope, cough, shortness of breath, wheeze, dyspnea, abdominal pain, nausea/vomiting/diarrhea, urinary retention, dysuria, hematuria, or rash. - ROS Systems Reviewed and Negative: Yes All other systems reviewed and negative - CONSTITUTIONAL Constitutional: DENIES: Fever, Chills - EENT EENT: REPORTS: Sore Throat - REPRODUCTIVE Reproductive: DENIES: : Past Medical History - Social History Smoking Status: Current Every Day Smoker Chew tobacco use (# tins/day): No Frequency of alcohol use: None Drug Abuse: None Family History: Reviewed & Not Pertinent, Hypertension - Younger brother, Malignancy - Mother with pancreatic cancer Patient has suicidal ideation: No Patient has homicidal ideation: No - Past Medical History Cardiac Medical History: Reports: Hx Hypertension Pulmonary Medical History: Reports: Hx Sleep Apnea Denies: Hx Asthma Endocrine Medical History: Reports: Hx Diabetes Mellitus Type 2 Renal/ Medical History: Denies: Hx Peritoneal Dialysis Musculoskeletal Medical History: Reports Hx Arthritis, Reports Hx Musculoskeletal Deformity Past Surgical History: Denies: Hx Pacemaker - Immunizations Immunizations up to date: Yes Hx Diphtheria, Pertussis, Tetanus Vaccination: Yes Vertical Provider Document - CONSTITUTIONAL Agree With Documented VS: Yes Notes: PHYSICAL EXAMINATION: GENERAL: Well-appearing, well-nourished and in no acute distress. HEAD: Atraumatic, normocephalic. EYES: Pupils equal round and reactive to light, extraocular movements intact, sclera anicteric, conjunctiva are normal. ENT: EAC clear b/l. TM's intact b/l without erythema, fluid, or perforation. Nares patent and without discharge. oropharynx clear without exudates. No tonsilar hypertrophy or erythema. Moist mucous membranes. No sinus tenderness. Uvula midline. No palatine shift. No tongue protrusion. No respiratory compromise. Mouth/face: + indurated area approx 1.5cm in diameter left lateral mouth/cheek area that is erythemic and tender w/o fluctuance, streaks, or discharge. No obvious abscess inside of the mouth. No dental tenderness. NECK: Normal range of motion, supple with small mildly tender submandibular lymph nodes. No rigidity/meningismus. LUNGS: Breath sounds clear to auscultation bilaterally and equal. No wheezes rales or rhonchi. HEART: Regular rate and rhythm without murmurs, rubs, gallops. NEUROLOGICAL: Normal speech, normal gait. PSYCH: Normal mood, normal affect. SKIN: Warm, Dry, normal turgor, no rashes or lesions noted. See above. - INFECTION CONTROL TRAVEL OUTSIDE OF THE [place] IN LAST 30 DAYS: No Course - Re-evaluation Re-evalutation: 05/20/19 10:34 Patient is an afebrile, well-hydrated, 38-year-old male who presents with a mild cellulitis to the left lateral mouth/cheek area. Vitals acceptable lasting tachycardia, tachypnea, hypoxia. PE is otherwise unremarkable. There is no fluctuance or drainable abscess noted today. No labs or imaging are warranted. Patient is nontoxic-appearing and is able to tolerate p.o. without difficulty. Patient was given Toradol today. I will send him home with a few pills for pain as well as Keflex/Bactrim. Patient is aware that this infection can develop into more of an abscess that may need to be drained in the future. Low suspicion for any necrotizing fasciitis, SJS, SSS, drug reaction, sepsis, meningitis, syphilis, Lyme disease, Gilbert spotted fever, or other systemic emergent condition at this time. Patient aware that condition can change from initial presentation and he needs to monitor symptoms closely and seek medical attention with any acute changes. Recheck with your PCM in 2 to 3 days. Return to the ED with any other worsening/concerning symptoms as reviewed. Patient is in agreement. - Vital Signs Vital signs: Temp Pulse Resp BP Pulse Ox 99.0 F 108 H 20 151/101 H 98 05/20/19 09:37 05/20/19 09:37 05/20/19 09:37 05/20/19 09:37 05/20/19 09:37 Discharge - Discharge Clinical Impression: Cellulitis of face Condition: Stable Disposition: HOME, SELF-CARE Instructions: Cephalexin ([facility]), Trimethoprim-Sulfa ([facility]) Additional Instructions: Keep the skin clean Wash with soap and water Tylenol/ibuprofen if needed Triple antibiotic ointment daily Take medication as directed Monitor for any worsening symptoms Recheck with your PCM in 2-3 days Return to the ED with any worsening symptoms and/or development of fever, headache, chest pain, palpitations, syncope, shortness of breath, trouble breathing, abdominal pain, n/v/d, abscess, purulent discharge, red streaks, worsening swelling, or other worsening symptoms that are concerning to you. Prescriptions: Sulfamethoxazole/Trimethoprim [Bactrim Ds Tablet] 1 each PO BID #20 tablet Cephalexin Monohydrate [Keflex 500 mg Capsule] 500 mg PO TID #30 capsule Tramadol HCl [Ultram 50 mg Tablet] 50 mg PO TID #10 tab Forms: Elevated Blood Pressure, Smoking Cessation Education Referrals: [facility] [Provider Group] - Follow up as needed
== END 2019-05-20 10:37 | disposition home or self-care (01) ==
LOC: ER 09:12
DX: L03.211 Cellulitis of face (principal); E11.9 Type 2 diabetes mellitus without complications; I10 Essential (primary) hypertension; F17.200 Nicotine dependence, unspecified, uncomplicated; J02.9 Acute pharyngitis, unspecified
CPT/HCPCS: 99283; 96372; J1885

== ENCOUNTER 2019-05-21 10:00 | Emergency (ER) | payer SELFPAY ==
[2019-05-21] MEDS ORDERED: CLINDAMYCIN 600 MG/D5W RTU 600 MG/50 ML RTUPB IV ONE (10:41)
[2019-05-21] MEDS ORDERED: KETOROLAC TROMETHAMINE INJ/PF 30 MG/1 ML SDV IV ONE (10:42)
--- NOTE | 2019-05-21 10:44 | ER Document Report ---
ED Medical Screen (RME) - General Chief Complaint: Facial Swelling Stated Complaint: FACE SWELLING - LEFT Time Seen by Provider: 05/21/19 10:35 Notes: Patient is a 38-year-old male who presents the emergency department with a chief complaint of left cheek/face swelling. He was seen yesterday and was given Bactrim and Keflex for his symptoms. He states he would had his antibiotics filled and this morning when he woke up his cheek was double size. Also states that the pain medicine is not helping him. He is a smoker. Exam: Tenderness and edema noted to left cheek. I have greeted and performed a rapid initial assessment of this patient. A comprehensive ED assessment and evaluation of the patient, analysis of test results and completion of medical decision making process will be conducted by an additional ED providers. TRAVEL OUTSIDE OF THE [place] IN LAST 30 DAYS: No - Related Data Allergies/Adverse Reactions: acetaminophen [From Tylenol] Allergy (Intermediate, Verified 05/20/19 10:25) VOMITING Past Medical History - Social History Chew tobacco use (# tins/day): No Frequency of alcohol use: None Drug Abuse: None - Past Medical History Cardiac Medical History: Reports: Hx Hypertension Pulmonary Medical History: Reports: Hx Sleep Apnea Denies: Hx Asthma Endocrine Medical History: Reports: Hx Diabetes Mellitus Type 2 Renal/ Medical History: Denies: Hx Peritoneal Dialysis Musculoskeltal Medical History: Reports Hx Arthritis, Reports Hx Musculoskeletal Deformity Past Surgical History: Denies: Hx Pacemaker - Immunizations Immunizations up to date: Yes Hx Diphtheria, Pertussis, Tetanus Vaccination: Yes Physical Exam - Vital signs Vitals: Temp Pulse Resp BP Pulse Ox 99.0 F 102 H 22 H 176/105 H 91 L 05/21/19 10:16 05/21/19 10:16 05/21/19 10:16 05/21/19 10:16 05/21/19 10:16 Course - Vital Signs Vital signs: Temp Pulse Resp BP Pulse Ox 99.0 F 102 H 22 H 176/105 H 91 L 05/21/19 10:16 05/21/19 10:16 05/21/19 10:16 05/21/19 10:16 05/21/19 10:16
[2019-05-21 11:08] LABS: ABSOLUTE BASOPHILS # (AUTO) 0.1 10^3/uL (0.0-0.2); ABSOLUTE EOSINOPHILS # (AUTO) 0.1 10^3/uL (0.0-0.6); ABSOLUTE LYMPHOCYTES (AUTO) 2.3 10^3/uL (0.5-4.7); ABSOLUTE MONOCYTES (AUTO) 0.7 10^3/uL (0.1-1.4); ABSOLUTE NEUT (AUTO) 9.7 10^3/uL (1.7-8.2); BASOPHILS % (AUTO) 0.6 % (0-2); HEMATOCRIT 45.8 % (37.9-51.0); MEAN CORPUSCULAR HEMOGLOBIN 32.2 pg (27.0-33.4); MEAN CORPUSCULAR HGB CONC 34.8 g/dL (32.0-36.0); MEAN CORPUSCULAR VOLUME 93 fl (80-97); MONOCYTES % (AUTO) 5.5 % (3-13); PLATELET COUNT 172 10^3/uL (150-450); RED BLOOD COUNT 4.95 10^6/uL (4.35-5.55); RED CELL DISTRIBUTION WIDTH 13.4 % (11.5-14.0); SEGMENTED NEUTROPHILS % (AUTO) 74.9 % (42-78); TOTAL CELLS COUNTED % (AUTO) 100 %; WHITE BLOOD COUNT 12.9 10^3/uL (4.0-10.5)
[2019-05-21 11:27] LABS: BLOOD UREA NITROGEN 11 mg/dL (7-20); CALCIUM 9.6 mg/dL (8.4-10.2); GLUCOSE 228 mg/dL (75-110)
[2019-05-21 11:28] LABS: ALBUMIN 4.5 g/dL (3.5-5.0); ALKALINE PHOSPHATASE 68 U/L (38-126); ANION GAP 11 (5-19); ASPARTATE AMINO TRANSFERASE 25 U/L (17-59); BILIRUBIN,DIRECT 0.2 mg/dL (0.0-0.4); CARBON DIOXIDE 30 mmol/L (22-30); CHLORIDE 96 mmol/L (98-107); POTASSIUM 4.7 mmol/L (3.6-5.0); TOTAL PROTEIN 8.1 g/dL (6.3-8.2)
[2019-05-21] MEDS ORDERED: MORPHINE SULFATE 10 MG/ML INJ IV ONE (13:14)
[2019-05-21] MEDS ORDERED: ONDANSETRON HCL INJ/PF 4 MG/2 ML SDV IV ONE (13:15)
--- NOTE | 2019-05-21 13:20 | ER Document Report ---
ED General - General Chief Complaint: Facial Swelling Stated Complaint: FACE SWELLING - LEFT Time Seen by Provider: 05/21/19 10:35 TRAVEL OUTSIDE OF THE [place] IN LAST 30 DAYS: No - HPI Notes: Patient is a 38-year male who presents the emergency department for evaluation. He states several days ago he developed what he believes to be a pimple. He tried to squeeze it and "nothing came out." He states over the next several days it became worse. He was actually seen here yesterday, started on antibiot ic. He states he is taken 2 or 3 doses. He woke up this morning it was much worse, much more painful. The Ultram is not helping. No fevers or chills, no nausea or vomiting. - Related Data Allergies/Adverse Reactions: acetaminophen [From Tylenol] Allergy (Intermediate, Verified 05/20/19 10:25) VOMITING Home Medications: Lisinopril, metformin Past Medical History - General Information source: Patient - Social History Smoking Status: Current Every Day Smoker Chew tobacco use (# tins/day): No Frequency of alcohol use: None Drug Abuse: None Family History: Reviewed & Not Pertinent, Hypertension - Younger brother, Marisela gnancy - Mother with pancreatic cancer Patient has suicidal ideation: No Patient has homicidal ideation: No - Past Medical History Cardiac Medical History: Reports: Hx Hypertension Pulmonary Medical History: Reports: Hx Sleep Apnea Denies: Hx Asthma Endocrine Medical History: Reports: Hx Diabetes Mellitus Type 2 Renal/ Medical History: Denies: Hx Peritoneal Dialysis Musculoskeletal Medical History: Reports Hx Arthritis, Reports Hx Musculoskeletal Deformity Past Surgical History: Denies: Hx Pacemaker - Immunizations Immunizations up to date: Yes Hx Diphtheria, Pertussis, Tetanus Vaccination: Yes Review of Systems - Review of Systems Constitutional: No symptoms reported EENT: See HPI Cardiovascular: No symptoms reported Respiratory: No symptoms reported Gastrointestinal: No symptoms reported Genitourinary: No symptoms reported Musculoskeletal: No symptoms reported Skin: See HPI Neurological/Psychological: No symptoms reported Physical Exam - Vital signs Vitals: Temp Pulse Resp BP Pulse Ox 99.0 F 102 H 22 H 176/105 H 91 L 05/21/19 10:16 05/21/19 10:16 05/21/19 10:16 05/21/19 10:16 05/21/19 10:16 - Notes Notes: This is an obese 38-year-old male who appears stated age in no acute distress. Head is normocephalic. He has a moderate amount of edema noted to the left cheek with an area of 5 cm under radiation centering around the left lateral aspect of the mouth. I do not appreciate any fluctuance. There is some associated calor. No swelling under the tongue. No submandibular or sublingual nodes appreciated. V Neck is supple without meningismus. Heart is regular rate and rhythm. Lungs are clear to auscultation bilaterally. Abdomen is soft, nontender, normoactive bowel sounds throughout. Extremities without cyanosis, clubbing. Posterior calves are nontender. Peripheral pulses are equal. Patient is awake, alert, neurological exam is nonfocal. Course - Re-evaluation Re-evalutation: 05/21/19 13:20 Patient presents emergency department for evaluation. He had laboratory investigations as obtained through triage. He was administered Toradol, clindamycin. I further gave him pain medication here. Awaiting CT scan. He is a mild leukocytosis but otherwise labs are unremarkable. His blood pressure was elevated, this was discussed with the patient as well, as well as my style modifications that are helpful in blood pressure control. He voiced understanding. Awaiting results, we will continue to monitor. 05/21/19 15:22 Patient cannot afford to change his antibiotics. My suspicion is that he did not have a significant worsening, just a worsening in his swelling as he was laying supine. He was informed about this. He has no fevers. He still talking, swallowing without difficulty. He is to continue the Bactrim and Keflex as prescribed. I will send him home with a small amount of pain medicine as well as prescription strength anti-inflammatories. He is to follow-up with primary care next week, return to the ED with worsening or new concerning symptoms of any sort. - Vital Signs Vital signs: Temp Pulse Resp BP Pulse Ox 99.0 F 102 H 22 H 176/105 H 91 L 05/21/19 10:16 05/21/19 10:16 05/21/19 10:16 05/21/19 10:16 05/21/19 10:16 - Laboratory Result Diagrams: 05/21/19 10:55 05/21/19 10:55 Laboratory results interpreted by me: 05/21/19 05/21/19 10:55 10:55 WBC 12.9 H Absolute Neuts (auto) 9.7 H Sodium 136.6 L Chloride 96 L Glucose 228 H - Diagnostic Test Radiology reviewed: Reports reviewed Radiology results interpreted by me: 05/21/19 15:[address] 05/21/19 10:40 IMPRESSION: Asymmetric inflammation to the left of the mandible associated with reactive adenopathy. There is no drainable rim enhancing fluid collection in th e area of inflammation. Discharge - Discharge Clinical Impression: Cellulitis of face Condition: Stable Disposition: HOME, SELF-CARE Instructions: Cellulitis ([facility]) Additional Instructions: Continue your antibiotics as prescribed. Take medications as directed for pain, watch for dizziness, drowsiness, constipation with the oxycodone. Follow-up with primary care next week. If you develop fever greater than 100.4, vomiting, worsening swelling, or any other new or concerning symptoms, please return immediately to the emergency department for reevaluation.
--- NOTE | 2019-05-21 14:43 | RADIOLOGY REPORT (SQ) ---
EXAM DESCRIPTION: CT FACIAL AREA WITH COMPLETED DATE/TIME: 05/21/2019 11:21 am REASON FOR STUDY: eval abscess? COMPARISON: None. TECHNIQUE: Post contrast images through the facial bones and orbits windowed for bone and soft tissu e. Additional coronal and sagittal reconstructed images reviewed. All images stored on PACS. All CT scanners at this facility use dose modulation, iterative reconstruction, and/or weight based d osing when appropriate to reduce radiation dose to as low as reasonably achievable (ALARA). [facility]: Dose Right [facility]: CareDose [facility]: Dose Right [facility]: Teradose 4D [facility]: Geliyoo CONTRAST TYPE AND DOSE: Contrast/concentration: Isovue mg/ml; Total Contrast Delivered: 65.0 ml; To jane Saline Delivered: 50.0 ml RENAL FUNCTION: GFR > 60. RADIATION DOSE: CT Rad equipment meets quality standard of care and radiation dose reduction techniq ues were employed. CTDIvol: 30.4 mGy. DLP: 608 mGy-cm. . LIMITATIONS: None. FINDINGS: FACIAL BONES: No fracture. The TMJs are in anatomic alignment. ORBITS: The orbits are intact. The globes, extraocular muscles, and optic nerve sheath complexes are symmetric in appearance. PARANASAL SINUSES: The paranasal sinuses are clear. SOFT TISSUES: Asymmetry of the soft tissues on the left side of the mandible associated with inflamma tory stranding of the subcutaneous fat and skin thickening. There is no drainable rim enhancing flui d collection in the area of inflammation. There are enlarged reactive left-sided Ib, Ia and IIb lymph nodes. The submandibular and parotid gla nds are normal in appearance. INFERIOR BRAIN: No abnormality. OTHER: Periapical lucency around a right mandibular molar. IMPRESSION: Asymmetric inflammation to the left of the mandible associated with reactive adenopathy. There is no drainable rim enhancing fluid collection in the area of inflammation. TECHNICAL DOCUMENTATION: JOB ID: [id number] Quality ID # [id number]: Final reports with documentation of one or more dose reduction techniques (e.g., Au tomated exposure control, adjustment of the mA and/or kV according to patient size, use of iterative reconstruction technique) 2010 [employer]- All Rights Reserved Reading location - IP/workstation name: [email or web address]
[2019-05-21 15:37] VITALS: BP 145/92
== END 2019-05-21 15:37 | disposition home or self-care (01) ==
LOC: ER 10:00
DX: L03.211 Cellulitis of face (principal); F17.200 Nicotine dependence, unspecified, uncomplicated; I10 Essential (primary) hypertension; E11.9 Type 2 diabetes mellitus without complications; Z88.6 Allergy status to analgesic agent
CPT/HCPCS: 99283; 96375; 96365; 36415; 87040; 85025; 80053; 70487; J1885; J2270; J2405

== ENCOUNTER 2019-10-20 11:03 | Emergency (ER) | payer SELFPAY ==
--- NOTE | 2019-10-20 11:14 | ER Document Report ---
ED Medical Screen (RME) - General Chief Complaint: Abscess Stated Complaint: ABSCESS Time Seen by Provider: 10/20/19 11:10 Mode of Arrival: Ambulatory Information source: Patient Notes: 39-year-old male presented to ED for abscess to the right axilla. He states it is a 5 out of 5 pain. He states that sharp burning like a hot dining room server his axilla area. He has no history of MRSA. He states she is never had any abscesses in this area before. He states he does smoke a pack a day does not drink or do any illicit drugs. He does have a history of high blood pressure. He is alert oriented respirations regular nonlabored speaking in full sentences. I have greeted and performed a rapid initial assessment of this patient. A comprehensive ED assessment and evaluation of the patient, analysis of test results and completion of medical decision making process will be conducted by an additional ED providers. TRAVEL OUTSIDE OF THE [place] IN LAST 30 DAYS: No - Related Data Allergies/Adverse Reactions: acetaminophen [From Tylenol] Allergy (Intermediate, Verified 05/20/19 10:25) VOMITING Past Medical History - Past Medical History Cardiac Medical History: Reports: Hx Hypertension Pulmonary Medical History: Reports: Hx Sleep Apnea Denies: Hx Asthma Endocrine Medical History: Reports: Hx Diabetes Mellitus Type 2 Renal/ Medical History: Denies: Hx Peritoneal Dialysis Musculoskeltal Medical History: Reports Hx Arthritis, Reports Hx Musculoskeletal Deformity Past Surgical History: Denies: Hx Pacemaker - Immunizations Immunizations up to date: Yes Hx Diphtheria, Pertussis, Tetanus Vaccination: Yes Physical Exam - Vital signs Vitals: Temp Pulse Resp BP Pulse Ox 99.4 F 112 H 18 179/106 H 96 10/20/19 11:10/20/19 11:10/20/19 11:10/20/19 11:07 10/20/19 11:07 Course - Vital Signs Vital signs: Temp Pulse Resp BP Pulse Ox 99.4 F 112 H 18 179/106 H 96 10/20/19 11:07 10/20/19 11:07 10/20/19 11:07 10/20/19 11:07 10/20/19 11:07
[2019-10-20] MEDS ORDERED: KETOROLAC TROMETHAMINE 60 MG/2 ML SDV IM ONE (13:31)
--- NOTE | 2019-10-20 13:41 | ER Document Report ---
ED Skin Rash/Insect Bite/Abscs - General Chief Complaint: Abscess Stated Complaint: ABSCESS Time Seen by Provider: 10/20/19 11:10 Primary Care Provider: BRE ROME MD [ACTIVE STAFF] - Follow up in 3-5 days (Call tomorrow for an outpatient follow-up appointment.) Mode of Arrival: Ambulatory Notes: 39-year-old male past medical history significant for diabetes presents to the emergency room complaining of increasing pain and swelling to his right axillary region for the past 2 days. Denies any trauma or injury. Denies any history of MRSA. States he has had one abscess to his buttock several years ago that went away without any treatment. Denies any IV drug use. Has not been taking anything for his pain. Drove himself to the emergency room. TRAVEL OUTSIDE OF THE [place] IN LAST 30 DAYS: No - Related Data Allergies/Adverse Reactions: acetaminophen [From Tylenol] Allergy (Intermediate, Verified 05/20/19 10:25) VOMITING Past Medical History - General Information source: Patient - Social History Smoking Status: Current Every Day Smoker Chew tobacco use (# tins/day): No Frequency of alcohol use: None Drug Abuse: None Family History: Reviewed & Not Pertinent, Hypertension - Younger brother, Malignancy - Mother with pancreatic cancer Patient has homicidal ideation: No - Past Medical History Cardiac Medical History: Reports: Hx Hypertension Pulmonary Medical History: Reports: Hx Sleep Apnea Denies: Hx Asthma Endocrine Medical History: Reports: Hx Diabetes Mellitus Type 2 Renal/ Medical History: Denies: Hx Peritoneal Dialysis Musculoskeletal Medical History: Reports Hx Arthritis, Reports Hx Musculoskeletal Deformity Past Surgical History: Denies: Hx Pacemaker - Immunizations Immunizations up to date: Yes Hx Diphtheria, Pertussis, Tetanus Vaccination: Yes Review of Systems - Review of Systems Constitutional: No symptoms reported Cardiovascular: No symptoms reported Respiratory: No symptoms reported Musculoskeletal: Muscle pain Skin: Other - Abscess Neurological/Psychological: No symptoms reported -: Yes All other systems reviewed and negative Physical Exam - Vital signs Vitals: Temp Pulse Resp BP Pulse Ox 99.4 F 112 H 18 179/106 H 96 10/20/19 11:07 10/20/19 11:07 10/20/19 11:07 10/20/19 11:07 10/20/19 11:07 - General General appearance: Appears well, Alert In distress: Moderate - Respiratory Respiratory status: No respiratory distress Chest status: Nontender Breath sounds: Normal Chest palpation: Normal - Cardiovascular Rhythm: Regular Heart sounds: Normal auscultation Murmur: No - Extremities General upper extremity: Tender, Other - Right axillary region with 2 nonfluctuant erythematous abscesses palpated one is 2 cm in size, the other one is 1 cm in size. Warm and tender to palpation with no active discharge or draining noted. . - Neurological Neuro grossly intact: Yes Cognition: Normal Orientation: AAOx4 [place] Coma Scale Eye Opening: Spontaneous [place] Coma Scale Verbal: Oriented [place] Coma Scale Motor: Obeys Commands [place] Coma Scale Total: 15 Speech: Normal Motor strength normal: LUE, RUE, LLE, RLE Sensory: Normal - Skin Skin Temperature: Warm Skin Moisture: Dry Skin Color: Normal Skin irregularity: Abscess - Right axillary region with 2 erythematous nonfluctuant abscesses palpated. One is 3 cm in size, the second 1 is 1 cm in size. Warm and tender to palpation with no active discharge or draining noted., Erythema Location of irregularity: Extremities Irregularity with: Swelling, Tenderness, Warmth. negative: Lymphangitis Course - Re-evaluation Re-evalutation: 10/20/19 14:00 Patient with a nonfluctuant abscess that is palpated to the right axillary region with some mild lymphadenopathy. Counseled on warm compresses. Antibiotics as prescribed. Pain medication as prescribed. Did review patient's [facility] records does not have a history of chronic narcotic use. Will discharge home on Bactrim, tramadol, also counseled on need to follow-up outpatient with a general surgeon. On-call physician was provided he is to call them today for an appointment. He is to return if the area becomes more erythematous, fever, more fluctuant, worsening pain. Patient was given strict return to the emergency room guidelines. Return for any new or worsening symptoms. All questions were answered. Patient verbalized understanding and agrees with plan of care. 10/20/19 15:24 - Vital Signs Vital signs: Temp Pulse Resp BP Pulse Ox 98.5 F 97 20 149/78 H 96 10/20/19 14:23 10/20/19 14:23 10/20/19 14:23 10/20/19 14:23 10/20/19 14:23 Discharge - Discharge Clinical Impression: Abscess of right axilla Condition: Stable Disposition: HOME, SELF-CARE Instructions: Abscess ([facility]), Trimethoprim-Sulfa ([facility]) Additional Instructions: You were seen for an abscess that did not require drainage. Please use warm compresses 20 minutes 3 times a day. Take medications as prescribed. Outpatient follow-up with general surgery as discussed. Please return if you develop fever, vomiting, the pain at the site worsens, you notice spreading redness from the area, or you have any other symptoms that are concerning to you. Prescriptions: Tramadol HCl [Ultram 50 mg Tablet] 50 mg PO Q4HP PRN #12 tab PRN Reason: Sulfamethoxazole/Trimethoprim [Bactrim Ds Tablet] 1 tab PO BID #20 tablet Referrals: BRE ROME MD [ACTIVE STAFF] - Follow up in 3-5 days (Call tomorrow for an outpatient follow-up appointment.)
[2019-10-20 14:24] VITALS: BP 149/78
== END 2019-10-20 14:30 | disposition home or self-care (01) ==
LOC: ER 11:03
DX: L02.411 Cutaneous abscess of right axilla (principal); M79.10 Myalgia, unspecified site; R59.9 Enlarged lymph nodes, unspecified; Z88.8 Allergy status to other drugs, medicaments and biological substances; F17.200 Nicotine dependence, unspecified, uncomplicated; I10 Essential (primary) hypertension; E11.9 Type 2 diabetes mellitus without complications
CPT/HCPCS: 99282; 96372; J1885